=== PATIENT | male | born 1940 | race Caucasian/White ===

== ENCOUNTER → 2016-11-19 | Outpatient (POV) ==
[2013-10-11 19:11] VITALS: BMI 30.7
== END ==
LOC: OUTPT 00:01
PROVIDERS: ATTEND Otolaryngology
DX: R42 Dizziness and giddiness (principal)
CPT/HCPCS: 92557; 92567

== ENCOUNTER 2017-04-08 11:08 | Outpatient (CLI) | payer OTHER ==
[2013-10-11 19:11] VITALS: BMI 30.7
--- NOTE | 2017-04-08 12:08 | CT ---
EXAM: CT Abdomen without contrast. CT Pelvis without contrast. HISTORY: Dysuria. Flank pain. Pelvic pain. COMPARISON: None available. TECHNIQUE: Multiple axial images of the abdomen and pelvis were obtained without intravenous contras t. Images were reformatted in the coronal plane. FINDINGS: Please note that evaluation of the abdominal and pelvic structures is limited due to lack of intravenous contrast. Mild subpleural fibrosis suggested in the lung bases. Posterior lumbar interbody fusion and laminect lauren changes seen from L3-S1. Degenerative changes noted within the spine. Gallbladder is absent. The liver, pancreas, spleen, and adrenal glands demonstrate normal contour. Partially exophytic masses are seen in both kidneys, some measuring fluid density and many measuring greater than fluid density. Largest right-sided mass measures 7.5 x 6.9 cm on axial image 46. The l argest left-sided mass measures 5.6 x 4.9 cm on axial image 71. No calcified renal stones or hydrone phrosis detected. Mild perinephric stranding noted bilaterally. No ureteral or bladder calculi are se en. Small hiatal hernia is present. The bowel is normal in course and caliber without evidence for obstr uction or inflammatory process. The appendix is normal. No localized urinary bladder abnormality is detected. Prostate is mildly enlarged. Atherosclerotic calcifications noted with the infrarenal ab dominal aorta measuring up to 3.4 cm maximum diameter. No free fluid or free air identified. Inferi or vena cava filter is present. IMPRESSION: 1. No acute abnormality within the abdomen or pelvis. 2. Mild bilateral perinephric stranding, which is nonspecific and often a chronic finding. 3. Indeterminate renal lesions bilaterally. In the absence of old studies documenting stability, co nsider correlation with MRI. 4. Small hiatal hernia. 5. Atherosclerosis with 3.4 cm infrarenal abdominal aortic aneurysm.
== END 2017-04-08 11:09 | disposition home or self-care (01) ==
LOC: RAD 11:08
PROVIDERS: ATTEND Family Medicine
DX: R30.0 Dysuria (principal); R10.9 Unspecified abdominal pain
CPT/HCPCS: 74176

== ENCOUNTER 2017-12-01 09:52 | Outpatient (RCR) ==
[2013-10-11 19:11] VITALS: BMI 30.7
--- NOTE | 2017-12-02 11:45 | RS.OPPTEV2 ---
Date of Note: 12/01/17 Visit #: 1 Date of Evaluation: 12/01/17 Payer Source: MEDICARE Surgery Performed?: Yes (Reverse Total Shld R UE) Procedure Performed: Reverse Total Shld R UE Date of Procedure: 10/28/17 Treatment Diagnosis: R shld pain, s/p reverse total shld History of Condition/Mechanism of Injury:: pt reports longstanding hx of shld pain due to arthritis. pt reports MD states he also needs surgery on L shld Prior Level of Function.....Patient was independent with: ADL's, Self Care, Ambulation/Mobility, Community Integration/Access Functional Limitations: Sleep, Self Care, ADL's, Reaching, Pushing, Pulling, Lifting, Carrying Current Subjective/complaints:: pt reports he has been unable to tolerate pain meds due to nausea. Reports pain is keeping him awake at night. pt states that he uses ice and TENS unit at home to help decrease pain. Treatment Side (optional): Right *Precautions: limit ext, ER Medical History Medical History: Hypertension, Diabetes, Arthritis Medical History Comments:: GERD, polycystic kidney dz, sleep apnea Surgical History: Lumbar Spine, Cholecystectomy Surgical History Comments:: hernia repair, AAA repair Smoking Status: Former smoker Hx Home Medications: protonix, lyrica, metformin, methotrexate, lipitor, bystolic, lisinopril, amlodipine besylate, prednisone, furosemide, folic acid, clopidogrel bisulfate, multivitamin, niacin, aspirin, oxycodone Patient's Goals: decrease pain and increase strength Pain Assessment - Pain Description Pain Location: R shld Pain Description: Tightness, Sharp, Aching, Acute Current Pain Intensity: 6-7/10 Worst Pain Intensity: 10 Other Comments regarding Pain:: pt also with pain in L shld 4/10 Functional Outcome Measure UE Functional Index: 14 (82%) - G Codes & Severity Modifier G Codes & Modifier: carrying, moving and handling current CM. carrying, moving and handling goal CK Source of G Code score: UE functional index Observation - Observation Inspection: incision healed, no open areas Posture: Forward Head, Rounded Shoulders, Increased Thoracic Kyphosis, Decreased Lumbar Lordosis Handedness: Right Gait - Gait Pattern General Gait Pattern Observation: No Deviations/Normal General Range of Motion: LUE WFL's. BLE WFL's Muscle Strength: LUE shld flex/ abd 4/5, otherwise 5/5. BLE 5/5 Shoulder ROM: Left WFL's - Right Shoulder ROM Right Shoulder Flexion: 70 (AAROM, 30 AROM) Right Shoulder Abduction: 80 (AAROM, 40 AROM) Comments: Ext rotation to neutral only, Internal rotation 30 - Left Shoulder Strength Left Shoulder Flexion: 4 Good Left Shoulder Abduction: 4 Good Left Shoulder Adduction: 4 Good Left Shoulder External Rotation: 4- Good- Left Shoulder Internal Rotation: 4- Good- - Right Shoulder Strength Right Shoulder Flexion: 3- Fair- Right Shoulder Extension: 2+ Poor+ Right Shoulder Abduction: 3- Fair- Right Shoulder Adduction: 3- Fair- Right Shoulder External Rotation: 2 Poor Right Shoulder Internal Rotation: 2+ Poor+ Palpation Palpation Findings: Tenderness Comments:: R shld Sensation - Sensation Right Upper Extremity: Impaired (R UE numbness and burning from mid forearm to wrist) Left Upper Extremity: Intact/Normal Right Lower Extremity: Intact/Normal Left Lower Extremity: Intact/Normal Balance - Sitting Balance Static Sitting Balance: Normal Dynamic Sitting Balance: Normal - Standing Balance Static Standing Balance: Normal Dynamic Standing Balance: Normal - Heat/Cryotherapy Treatment: Cryotherapy Comments:: R shld Interventions - Exercise/Activities/Manual Therapy Exercises/Activities: pt received gentle ROM R shld, performed pendulum ex's with instruction on proper technique, pt also performed isometric R shld add, abd, attempted flex however experienced increased pain. Manual Therapy: n/a HOME EXERCISE PROGRAM: pt received HEP including isometric shld flex, abd, add as well as pendulum ex. - Charges Timed Code Treatment Minutes: 49 Total Treatment Time: 61 Procedures billed for this date of service:: eval med, cold pack EVALUATION COMPLEXITY LEVEL EVALUATION COMPLEXITY LEVEL: HISTORY: Medium (DM, HTN, OA, kidney disease), EXAM OF BODY SYSTEMS: Medium (ROM, strength, pain, posture, ), CLINICAL PRESENTATION: Medium (evolving), CLINICAL DECISION MAKING: Medium Assessment Assessment: pt presents s/p R reverse total shld replacment with decreased ROM, strength as well as pain in R shld. pt is unable to tolerate pain meds due to nausea. Patient Education: Education of diagnosis, Home Exercise Program, Education of Plan of Care Rehab Potential: Good Short Term Goals Goal #1: report decreased interruptions of sleep due to pain, able to sleep 2-3 hrs Goal to be met by: 12/15/17 Goal #2: Increase R shld AAROM flex 95 abd 90 Goal to be met by: 12/15/17 Goal #3: pt independent with intial HEP Goal to be met by: 12/15/17 Alf Goals Goal #1: report decreased pain allowing increased ability to perform household chore Goal to be met by: 12/29/17 Goal #2: pt report ability to perform ADL's independently with less pain Goal to be met by: 12/29/17 Goal #3: Increase R shld ROM flex 120 abd 110, IR WFL's Goal to be met by: 12/29/17 Goal #4: pt independent with HEP to maintain gains after dc Goal to be met by: 12/29/17 Plan - Treatment to be Provided Procedures: Therapeutic Exercises, Therapeutic Activity, Manual Therapy, Patient Education Modalities: Electrical Stimulation, Class IV Laser, Cryotherapy, Hot Packs - Treatment Plan Frequency: 2-3 x per week Duration: 4 weeks ORDER # VISITS AND/OR THROUGH DATE: 12/29/17 - Treatment Code (1) Pain in joint, shoulder region Code(s): M25.519 - PAIN IN UNSPECIFIED SHOULDER (2) Aftercare following shoulder joint replacement surgery Code(s): Z47.1 - AFTERCARE FOLLOWING JOINT REPLACEMENT SURGERY; Z96.619 - PRESENCE OF UNSPECIFIED ARTIFICIAL SHOULDER JOINT (3) Muscle weakness Code(s): M62.81 - MUSCLE WEAKNESS (GENERALIZED)
== END 2017-12-03 23:59 ==
PROVIDERS: ATTEND Orthopaedic Surgery
DX: Z47.1 Aftercare following joint replacement surgery (principal); Z96.611 Presence of right artificial shoulder joint; M25.511 Pain in right shoulder; M62.81 Muscle weakness (generalized)

== ENCOUNTER 2017-12-31 11:00 | Outpatient (RCR) ==
[2014-10-18 13:24] VITALS: BMI 30.7
--- NOTE | 2017-12-04 16:01 | RS.OPPTDN ---
Subjective Date of Note: 12/04/17 Visit #: 2 Date of Evaluation: 12/01/17 Payer Source: MEDICARE Treatment Diagnosis: R shld pain, s/p reverse total shld Current Subjective/complaints:: Patient reports he is working on HEP. *Precautions: limit ext, ER Pain Assessment - Pain Description Pain Location: Right shoulder and upper arm Current Pain Intensity: mild Interventions - Exercise/Activities/Manual Therapy Exercises/Activities: Majority of time spent on gentle ROM R shoulder. Isometrics right shoulder add, ext, abd, biceps, triceps. Patient hold ball for isometric bilateral shoulder IR. Wand for chest press. In sitting, shoulder shrugs and scap retraction. Codmans. Paitent given copies of new exercises. Total minutes of Exercise: 40mins Manual Therapy: n/a HOME EXERCISE PROGRAM: pt received HEP including isometric shld flex, abd, add as well as pendulum ex. Wand for chest press in supine. Shoulder shrugs and scap retraction. - Charges Timed Code Treatment Minutes: 40mins Total Treatment Time: 43mins Procedures billed for this date of service:: EX3 Assessment: Patient tolerates progression of basic exercise. Patient appears motivated to progress. Patient Education: Education of diagnosis, Body/Joint mechanics, Home Exercise Program, Home Safety Comments: Patient education of joint mechanics and general safety precautions. 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
--- NOTE | 2017-12-07 12:59 | RS.OPPTDN ---
Subjective Date of Note: 12/07/17 Visit #: 3 Date of Evaluation: 12/01/17 Payer Source: MEDICARE Treatment Diagnosis: R shld pain, s/p reverse total shld Current Subjective/complaints:: Patient reports some soreness at the lateral upper right arm. States he feels like he is doing well with HEP. *Precautions: limit ext, ER Pain Assessment - Pain Description Pain Location: Right shoulder and upper arm Current Pain Intensity: mild Interventions - Exercise/Activities/Manual Therapy Exercises/Activities: Continue to focus on gentle ROM fo the right shoulder. Isometrics right shoulder add, ext, abd, biceps, triceps. Patient hold ball for isometric bilateral shoulder IR. Holds ball overhead with shoulder at 90 degrees flexion and performs isometric horz add. Wand for chest press and short range flexion. In sitting, shoulder shrugs and scap retraction. Codmans. Began overhead shoulder pulleys. Ends with red theraband for bilateral shoulder extension (to neutral) while performing scap retraction. Total minutes of Exercise: 44mins Manual Therapy: n/a HOME EXERCISE PROGRAM: pt received HEP including isometric shld flex, abd, add as well as pendulum ex. Wand for chest press in supine. Shoulder shrugs and scap retraction. - Charges Timed Code Treatment Minutes: 44mins Total Treatment Time: 45mins Procedures billed for this date of service:: EX3 Assessment: Patient progressing with ROM and gentle AAROM. Patient Education: Body/Joint mechanics, Home Exercise Program, Activity Modification Patient demonstrates compliance with HEP?: Yes Short Term Goals Goal #1: report decreased interruptions of sleep due to pain, able to sleep 2-3 hrs Goal to be met by: 12/15/17 Progress towards Goal:: Progressing Goal #2: Increase R shld AAROM flex 95 abd 90 Goal to be met by: 12/15/17 Progress towards Goal:: Progressing Goal #3: pt independent with intial HEP Goal to be met by: 12/15/17 Progress towards Goal:: Progressing Long-Term Goals Goal #1: report decreased pain allowing increased ability to perform household chore Goal to be met by: 12/29/17 Goal #2: pt report ability to perform ADL's independently with less pain Goal to be met by: 12/29/17 Goal #3: Increase R shld ROM flex 120 abd 110, IR WFL's Goal to be met by: 12/29/17 Goal #4: pt independent with HEP to maintain gains after dc Goal to be met by: 12/29/17 Plan PLAN OF CARE EXPIRES ON:: 12/29/17 ORDER # VISITS AND/OR THROUGH DATE: 12/29/17 PLAN: Continue to progress ROM and AAROM exercises.
--- NOTE | 2017-12-09 12:01 | RS.OPPTDN ---
Subjective Date of Note: 12/09/17 Visit #: 4 Date of Evaluation: 12/01/17 Payer Source: MEDICARE Treatment Diagnosis: R shld pain, s/p reverse total shld Current Subjective/complaints:: Patient says he thinks he may be worse due to pain level. Says his mobility is worse, but seems to be hurting more at times. Patient says that he has made a mirta system at home and works on them often to improve ROM. He does say he misses target shooting with the R UE as location of placement using madelyn will cause tenderness to this area. Reports he will probably use the L UE until R heals. *Precautions: limit ext, ER Pain Assessment - Pain Description Pain Location: R shoulder anteriorally and to the axillary region Interventions - Exercise/Activities/Manual Therapy Exercises/Activities: Continue to focus on gentle ROM fo the right shoulder. Isometrics right shoulder add, ext, abd, biceps, triceps 2x5. Patient hold ball for isometric bilateral shoulder IR. Holds ball overhead with shoulder at 90 degrees flexion and performs isometric horz add. Wand for chest press and short range flexion. In sitting, shoulder shrugs and scap retraction. Finished with overhead shoulder pulleys. Ends with red theraband for bilateral shoulder extension (to neutral) while performing scap retraction. Total minutes of Exercise: 45 Manual Therapy: n/a HOME EXERCISE PROGRAM: pt received HEP including isometric shld flex, abd, add as well as pendulum ex. Wand for chest press in supine. Shoulder shrugs and scap retraction. - Charges Timed Code Treatment Minutes: 45 Total Treatment Time: 45 Procedures billed for this date of service:: ex3 Assessment: Patient demo AA shoulder flexion to 125 degrees using wand in supine , ABD to 115 degrees in supine. Pain remains mostly with eccentric contractions and continues to be moderate level. He is motivated to advance as he anticipates same procedure for the L shoulder once R has recovered. Patient Education: Education of diagnosis, Body/Joint mechanics, Education of Plan of Care Patient demonstrates compliance with HEP?: Yes Short Term Goals Goal #1: report decreased interruptions of sleep due to pain, able to sleep 2-3 hrs Goal to be met by: 12/15/17 Progress towards Goal:: Progressing Goal #2: Increase R shld AAROM flex 95 abd 90 Goal to be met by: 12/15/17 Progress towards Goal:: Progressing Goal #3: pt independent with intial HEP Goal to be met by: 12/15/17 Progress towards Goal:: Progressing Correction Goals Goal #1: report decreased pain allowing increased ability to perform household chore Goal to be met by: 12/29/17 Goal #2: pt report ability to perform ADL's independently with less pain Goal to be met by: 12/29/17 Goal #3: Increase R shld ROM flex 120 abd 110, IR WFL's Goal to be met by: 12/29/17 Goal #4: pt independent with HEP to maintain gains after dc Goal to be met by: 12/29/17 Plan PLAN OF CARE EXPIRES ON:: 12/29/17 ORDER # VISITS AND/OR THROUGH DATE: 12/29/17 PLAN: Continue with progressive therex for the R shoulder
--- NOTE | 2017-12-11 12:03 | RS.OPPTDN ---
Subjective Date of Note: 12/11/17 Visit #: 5 Date of Evaluation: 12/01/17 Payer Source: MEDICARE Treatment Diagnosis: R shld pain, s/p reverse total shld Current Subjective/complaints:: Patient reports he feels he is progressing well. He is doing more light activities but is careful with shoulder precautions. *Precautions: limit ext, ER Pain Assessment - Pain Description Pain Location: Right shoulder and upper arm Pain Description: Aching Current Pain Intensity: mild with some movements Interventions - Exercise/Activities/Manual Therapy Exercises/Activities: Gentle ROM fo the right shoulder. Isometrics right shoulder add, ext, abd, biceps, triceps [id number]. Patient hold ball for isometric bilateral shoulder IR. Wand for chest press and flexion from lap to overhead. Isometrics all 4 directions while holding right shoulder at 90 degrees flexion. Began short resistive flex, ext, horz add, and abd with red theragand. In sitting, shoulder shrugs and scap retraction. AA flexion, scap, and abd. Red theraband for right shoulder x4 directions in standing. Ball on the wall. Total minutes of Exercise: 44mins Manual Therapy: n/a HOME EXERCISE PROGRAM: pt received HEP including isometric shld flex, abd, add as well as pendulum ex. Wand for chest press in supine. Shoulder shrugs and scap retraction. - Objective Findings Observations,measurements,etc.: Demos right active shoulder flexion to 115 degrees. - Charges Timed Code Treatment Minutes: 44mins Total Treatment Time: 47mins Procedures billed for this date of service:: EX3 Assessment: Patient progressing well with exercise and with light functional ADL 's. Patient Education: Body/Joint mechanics, Home Exercise Program, Home Safety, Activity Modification Patient demonstrates compliance with HEP?: Yes Short Term Goals Goal #1: report decreased interruptions of sleep due to pain, able to sleep 2-3 hrs Goal to be met by: 12/15/17 Progress towards Goal:: Progressing Goal #2: Increase R shld AAROM flex 95 abd 90 Goal to be met by: 12/15/17 Progress towards Goal:: Partially Met Goal #3: pt independent with intial HEP Goal to be met by: 12/15/17 Progress towards Goal:: Partially [place] Hand Goals Goal #1: report decreased pain allowing increased ability to perform household chore Goal to be met by: 12/29/17 Progress towards goal: Progressing Goal #2: pt report ability to perform ADL's independently with less pain Goal to be met by: 12/29/17 Progress towards goal: Progressing Goal #3: Increase R shld ROM flex 120 abd 110, IR WFL's Goal to be met by: 12/29/17 Goal #4: pt independent with HEP to maintain gains after dc Goal to be met by: 12/29/17 Plan PLAN OF CARE EXPIRES ON:: 12/29/17 ORDER # VISITS AND/OR THROUGH DATE: 12/29/17 PLAN: Progress strengthening and AROM.
--- NOTE | 2017-12-14 15:07 | RS.OPPTDN ---
Subjective Date of Note: 12/14/17 Visit #: 6 Date of Evaluation: 12/01/17 Payer Source: MEDICARE Treatment Diagnosis: R shld pain, s/p reverse total shld Current Subjective/complaints:: Patient reports he has increased soreness in the right upper lateral arm but that may be due to increasing his activity level. *Precautions: limit ext, ER Pain Assessment - Pain Description Pain Location: right shoulder and upper arm Pain Description: Dull, Aching Current Pain Intensity: mild Interventions - Exercise/Activities/Manual Therapy Exercises/Activities: Gentle ROM fo the right shoulder. Isometrics right shoulder add, ext, abd, biceps, triceps [id number]. Patient hold ball for isometric bilateral shoulder IR. Isometric horz add with ball. Overhead ball toss for proprioception. Increased to 3# wand for chest press and flexion from lap to overhead. Short resistive flex, ext, horz add, and abd with yellow theraband. In sitting, shoulder shrugs and scap retraction. AA flexion, scap, and abd. Red theraband for right shoulder x4 directions in standing Began cuff series with 2# dumbell. Ball on the wall. Total minutes of Exercise: 44mins Manual Therapy: n/a HOME EXERCISE PROGRAM: pt received HEP including isometric shld flex, abd, add as well as pendulum ex. Wand for chest press in supine. Shoulder shrugs and scap retraction. - Objective Findings Observations,measurements,etc.: Active right shoulder flexion 123 degrees and abduction to 81 degrees. - Charges Timed Code Treatment Minutes: 44mins Total Treatment Time: 46mins Procedures billed for this date of service:: EX3 Assessment: Progressing with AROM and gentle strengthening. 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 Goal #1: report decreased pain allowing increased ability to perform household chore Goal to be met by: 12/29/17 Progress towards goal: Progressing Goal #2: pt report ability to perform ADL's independently with less pain Goal to be met by: 12/29/17 Progress towards goal: Progressing Goal #3: Increase R shld ROM flex 120 abd 110, IR WFL's Goal to be met by: 12/29/17 Goal #4: pt independent with HEP to maintain gains after dc Goal to be met by: 12/29/17 Plan PLAN OF CARE EXPIRES ON:: 12/29/17 ORDER # VISITS AND/OR THROUGH DATE: 12/29/17 PLAN: Progress with ROM and strengthening to increase functional activity level.
--- NOTE | 2017-12-16 11:59 | RS.OPPTDN ---
Subjective Date of Note: 12/16/17 Visit #: 7 Date of Evaluation: 12/01/17 Payer Source: MEDICARE Treatment Diagnosis: R shld pain, s/p reverse total shld Current Subjective/complaints:: Patient reports he is making progress but still having discomfort at the lateral upper right arm. *Precautions: limit ext, ER Pain Assessment - Pain Description Pain Location: Right shoulder and upper arm Pain Description: Dull, Aching Current Pain Intensity: mild Other Comments regarding Pain:: Reports mild discomfort with some active reaching and when rollong onto arm when in bed. Interventions - Exercise/Activities/Manual Therapy Exercises/Activities: ROM fo the right shoulder. Isometrics right shoulder add, ext, abd, biceps, triceps. Patient hold ball for isometric bilateral shoulder IR. Isometric horz add with ball. Overhead ball toss for proprioception. Increased to 5# wand for chest press and overhead flexion. Short resistive flex , ext, horz add, and abd increased to red theraband. Began resistive flexion and scaption with 1# dumbell. In sitting, shoulder shrugs and scap retraction. 3 # wand flexion to shoulder height. Standing, red theraband for right shoulder x4 directions, increased to 2s/10reps, Cuff series increased to 3# dumbell. Ball on the wall and bouncing ball off wall. Chest passisng. Total minutes of Exercise: 43mins Manual Therapy: n/a HOME EXERCISE PROGRAM: pt received HEP including isometric shld flex, abd, add as well as pendulum ex. Wand for chest press in supine. Shoulder shrugs and scap retraction. - Charges Timed Code Treatment Minutes: 43mins Total Treatment Time: 46mins Procedures billed for this date of service:: EX3 Assessment: Patient progressing with strengthening exercise and with functional use of the right UE with ADL's. Patient Education: Body/Joint mechanics, Home Exercise Program, Activity Modification Patient demonstrates compliance with HEP?: Yes Short Term Goals Goal #1: report decreased interruptions of sleep due to pain, able to sleep 2-3 hrs Goal to be met by: 12/15/17 Progress towards Goal:: Met Goal #2: Increase R shld AAROM flex 95 abd 90 Goal to be met by: 12/15/17 Progress towards Goal:: Partially Met Goal #3: pt independent with intial HEP Goal to be met by: 12/15/17 Progress towards Goal:: Met Group Home Goals Goal #1: report decreased pain allowing increased ability to perform household chore Goal to be met by: 12/29/17 Progress towards goal: Progressing Goal #2: pt report ability to perform ADL's independently with less pain Goal to be met by: 12/29/17 Progress towards goal: Progressing Goal #3: Increase R shld ROM flex 120 abd 110, IR WFL's Goal to be met by: 12/29/17 Goal #4: pt independent with HEP to maintain gains after dc Goal to be met by: 12/29/17 Plan PLAN OF CARE EXPIRES ON:: 12/29/17 ORDER # VISITS AND/OR THROUGH DATE: 12/29/17 PLAN: Continue progressing ROM and strengthening of the right UE to increase patients functional activity level.
--- NOTE | 2017-12-18 12:11 | RS.OPPTDN ---
Subjective Date of Note: 12/18/17 Visit #: 8 Date of Evaluation: 12/01/17 Payer Source: MEDICARE Treatment Diagnosis: R shld pain, s/p reverse total shld Current Subjective/complaints:: Patient reports mild soreness continues at the upper lateral right arm with inncreased use of the right arm. States his active reaching is improving. *Precautions: limit ext, ER Pain Assessment - Pain Description Pain Location: Right shoulder and upper arm Pain Description: Dull, Aching Current Pain Intensity: mild with activity Interventions - Exercise/Activities/Manual Therapy Exercises/Activities: ROM fo the right shoulder. Isometrics right shoulder add, ext, abd, biceps, triceps. Overhead ball toss for proprioception. Increased to 6 # wand for chest press and overhead flexion. Short resistive flex, ext, horz add , and abd increased to red theraband. Resistive flexion and scaption with 1# dumbell. 3# dumbell for sesrratus punch. 6# wand for chest press and overhead flexion. In sitting, shoulder shrugs and scap retraction. 3# wand flexion to shoulder height. Standing, red theraband for right shoulder x4 directions, increased to 2s/10reps, Chest passing. Cable pulleys for scap retraction with 20 #, 20reps. Ball on the wall and bouncing ball off wall. Active flexion leaning against wall for support. Total minutes of Exercise: 43mins Manual Therapy: n/a HOME EXERCISE PROGRAM: pt received HEP including isometric shld flex, abd, add as well as pendulum ex. Wand for chest press in supine. Shoulder shrugs and scap retraction. - Objective Findings Observations,measurements,etc.: Active right shoulder flexion 133 degrees today. - Charges Timed Code Treatment Minutes: 43mins Total Treatment Time: 46mins Procedures billed for this date of service:: EX3 Assessment: Patient progressing with AROM of the right shoulder and reporting increase in functional use of the right UE. Patient Education: Body/Joint mechanics, Home Exercise Program, Home Safety, Activity Modification Patient demonstrates compliance with HEP?: Yes Short Term Goals Goal #1: report decreased interruptions of sleep due to pain, able to sleep 2-3 hrs Goal to be met by: 12/15/17 Progress towards Goal:: Met Goal #2: Increase R shld AAROM flex 95 abd 90 Goal to be met by: 12/15/17 Progress towards Goal:: Partially Met Goal #3: pt independent with intial HEP Goal to be met by: 12/15/17 Progress towards Goal:: Met Halfway Goals Goal #1: report decreased pain allowing increased ability to perform household chore Goal to be met by: 12/29/17 Progress towards goal: Partially Met Goal #2: pt report ability to perform ADL's independently with less pain Goal to be met by: 12/29/17 Progress towards goal: Progressing Goal #3: Increase R shld ROM flex 120 abd 110, IR WFL's Goal to be met by: 12/29/17 Progress towards goal: Progressing Goal #4: pt independent with HEP to maintain gains after dc Goal to be met by: 12/29/17 Plan PLAN OF CARE EXPIRES ON:: 12/29/17 ORDER # VISITS AND/OR THROUGH DATE: 12/29/17 PLAN: Progress ROM and strengthening to increase patients functional activity level.
--- NOTE | 2017-12-21 16:21 | RS.OPPTDN ---
Subjective Date of Note: 12/21/17 Visit #: 9 Date of Evaluation: 12/01/17 Payer Source: MEDICARE Treatment Diagnosis: R shld pain, s/p reverse total shld Current Subjective/complaints:: Reports increasing light daily activities, but continues to have pain in the upper right arm that limits his sleep at night. *Precautions: limit ext, ER Pain Assessment - Pain Description Pain Location: right upper arm Pain Description: Aching Current Pain Intensity: mod at night Interventions - Exercise/Activities/Manual Therapy Exercises/Activities: ROM of the right shoulder. Isometrics right shoulder add, ext, abd, biceps, triceps. Overhead ball toss for proprioception. 7# wand for chest press and short overhead flexion. Short resistive flex, ext, horz add, and abd increased to red theraband. Resistive flexion and scaption with 1# dumbell. In sitting, scap retraction green theraband. 3# wand flexion to shoulder height. Standing, red theraband for right shoulder x4 directions, 2s/ 10reps, Chest passing, and began overhead pass. Overhead shoulder pulleys. Ball on the wall. Cuff series with 3# dumbell. Total minutes of Exercise: 41mins Manual Therapy: n/a HOME EXERCISE PROGRAM: pt received HEP including isometric shld flex, abd, add as well as pendulum ex. Wand for chest press in supine. Shoulder shrugs and scap retraction. - Charges Timed Code Treatment Minutes: 41mins Total Treatment Time: 43mins Procedures billed for this date of service:: EX3 Assessment: Patient progressing but having limitation due to discomfort upper right arm. 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 Goal #1: report decreased pain allowing increased ability to perform household chore Goal to be met by: 12/29/17 Progress towards goal: Partially Met Goal #2: pt report ability to perform ADL's independently with less pain Goal to be met by: 12/29/17 Progress towards goal: Progressing Goal #3: Increase R shld ROM flex 120 abd 110, IR WFL's Goal to be met by: 12/29/17 Progress towards goal: Progressing Goal #4: pt independent with HEP to maintain gains after dc Goal to be met by: 12/29/17 Plan PLAN OF CARE EXPIRES ON:: 12/29/17 ORDER # VISITS AND/OR THROUGH DATE: 12/29/17 PLAN: Progress with ROM and strengthening to increase functional use of the right UE.
--- NOTE | 2017-12-23 16:04 | RS.OPPTDN ---
Subjective Date of Note: 12/23/17 Visit #: 10 Date of Evaluation: 12/01/17 Payer Source: MEDICARE Treatment Diagnosis: R shld pain, s/p reverse total shld Current Subjective/complaints:: Patient reports he is progressing with some daily activities. Feels he will gain more use of the right UE with continued strengthening exercise. States he is concerned with discomfort right upper arm, which is worse at night when trying to rest. *Precautions: limit ext, ER Pain Assessment - Pain Description Pain Location: Right shoulder and upper arm Pain Description: Aching Current Pain Intensity: mild Interventions - Exercise/Activities/Manual Therapy Exercises/Activities: ROM of the right shoulder. Isometrics right shoulder add, ext, abd, biceps, triceps. Overhead ball toss and manual ocsillating resistance for proprioception. 7# wand for chest press and short overhead flexion. Short resistive flex, ext, horz add, and abd increased to red theraband. Resistive flexion and scaption with 1# dumbell. In sitting, scap retraction green theraband. 3# wand flexion to shoulder height. Standing, red theraband for right shoulder x4 directions, 2s/10reps, Chest passing, and began overhead pass. Cuff series with 3# dumbell. Active reaching with right UE. Total minutes of Exercise: 44mins Manual Therapy: n/a HOME EXERCISE PROGRAM: pt received HEP including isometric shld flex, abd, add as well as pendulum ex. Wand for chest press in supine. Shoulder shrugs and scap retraction. - Objective Findings Observations,measurements,etc.: Acitve right shoulder flexion to 146 degrees today. Patient increases Upper Extremity Functional Index score to 48/80 or 40%. - Charges Timed Code Treatment Minutes: 44mins Total Treatment Time: 47mins Procedures billed for this date of service:: EX3 Assessment: Patient has progressed well and demos good potential for progress with functional use of the right UE with daily activities. 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 Goal #1: report decreased pain allowing increased ability to perform household chore Goal to be met by: 12/29/17 Progress towards goal: Partially Met Goal #2: pt report ability to perform ADL's independently with less pain Goal to be met by: 12/29/17 Progress towards goal: Progressing Goal #3: Increase R shld ROM flex 120 abd 110, IR WFL's Goal to be met by: 12/29/17 Progress towards goal: Partially Met Goal #4: pt independent with HEP to maintain gains after dc Goal to be met by: 12/29/17 Progress towards goal: Partially Met Plan PLAN OF CARE EXPIRES ON:: 12/29/17 ORDER # VISITS AND/OR THROUGH DATE: 12/29/17 PLAN: Continue with current POC to increase patients functional use of the right UE.
--- NOTE | 2017-12-25 11:36 | RS.PTSUM ---
Progress Note/Summary Date of Note: 12/23/17 Date of Evaluation: 12/01/17 Number of Visits: 10 Reporting Period for this Progress Note: 12/01-12/23/17 Current Complaints/Gains: pt reports he is pleased with his progress. pt feels he can gain more use of RUE with ADL's. pt can perform light ADL's at this time. Objective Measurements/Presentation: pt AROM R shld flex 146. Strength R shld 3 to 3+/5 R shld flex. pt UE functional scale has improved from 14/80 on eval to 48/80. G Codes: carrying moving and handling current CK. carrying moving and handling goal CK Source of G Code Score: UE functional scale - Short Term Goals Goal #1: report decreased interruptions of sleep due to pain, able to sleep 2-3 hrs Goal to be met by: 12/15/17 Progress towards Goal:: Met Goal #2: Increase R shld AAROM flex 95 abd 90 Goal to be met by: 12/15/17 Progress towards Goal:: Met Goal #3: pt independent with intial HEP Goal to be met by: 12/15/17 Progress towards Goal:: Met - Snf Goals Goal #1: report decreased pain allowing increased ability to perform household chore Goal to be met by: 12/29/17 Progress towards goal: Partially Met Goal #2: pt report ability to perform ADL's independently with less pain Goal to be met by: 12/29/17 Progress towards goal: Progressing Goal #3: Increase R shld ROM flex 120 abd 110, IR WFL's Goal to be met by: 12/29/17 Progress towards goal: Partially Met Goal #4: pt independent with HEP to maintain gains after dc Goal to be met by: 12/29/17 Progress towards goal: Partially Met - Assessment Assessment of Improvement/Progress: pt has met all STG's and is progressing toward remaining goals. pt has made significant progress with ROM, pain and functional use of R UE. Feel pt would benefit from 2 more visits to increase ROM and increase independence with home activities. Summary: Patient has made progress towards goals., Patient demonstrates potential to gain increased function with therapy - Plan Plan: Complete remaining visits on current order. Frequency: 2 X week Duration: 1 week PLAN OF CARE EXPIRES ON:: 06/26/18 ORDER # VISITS AND/OR THROUGH DATE: 12/29/17
--- NOTE | 2017-12-25 15:25 | RS.OPPTDN ---
Subjective Date of Note: 12/25/17 Visit #: 11 Date of Evaluation: 12/01/17 Payer Source: MEDICARE Treatment Diagnosis: R shld pain, s/p reverse total shld Current Subjective/complaints:: Patient reports he is seeing his physician today for a follow-up. He is pleased with his progress but continues to have pain in the right upper arm. He reports he is doing more light daily activities around his home. *Precautions: limit ext, ER Pain Assessment - Pain Description Pain Location: Right shoulder and upper arm Pain Description: Aching Current Pain Intensity: mild Interventions - Exercise/Activities/Manual Therapy Exercises/Activities: ROM of the right shoulder. Isometrics right shoulder add, ext, abd, biceps, triceps. Overhead ball toss and manual proprioception. 7# wand for chest press and short overhead flexion. Short resistive flex, ext, horz add, and abd increased to red and green theraband. Resistive pulldowns with wand and green theraband. In sitting, scap retraction green theraband. 3# wand flexion to shoulder height. Standing, red theraband for right shoulder x4 directions, 2s/10reps, Chest passing and overhead pass. Cuff series with 3# dumbell. Active reaching with right UE. Ball on the wall. Total minutes of Exercise: 44mins Manual Therapy: n/a HOME EXERCISE PROGRAM: pt received HEP including isometric shld flex, abd, add as well as pendulum ex. Wand for chest press in supine. Shoulder shrugs and scap retraction. - Objective Findings Observations,measurements,etc.: Active right shoulder flexion 153 degrees and abduction 134 degrees. - Charges Timed Code Treatment Minutes: 44mins Total Treatment Time: 47mins Procedures billed for this date of service:: EX3 Assessment: Patient progressing well with AROM and strengthening exercises. 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 Goal #1: report decreased pain allowing increased ability to perform household chore Goal to be met by: 12/29/17 Progress towards goal: Partially Met Goal #2: pt report ability to perform ADL's independently with less pain Goal to be met by: 12/29/17 Progress towards goal: Partially Met Goal #3: Increase R shld ROM flex 120 abd 110, IR WFL's Goal to be met by: 12/29/17 Progress towards goal: Met Goal #4: pt independent with HEP to maintain gains after dc Goal to be met by: 12/29/17 Progress towards goal: Partially Met Plan PLAN OF CARE EXPIRES ON:: 12/29/17 ORDER # VISITS AND/OR THROUGH DATE: 12/29/17 PLAN: Will see patient next week and may reassess need to continue if additional orders received from physician. Prepare for discharge with HEP if indicated.
--- NOTE | 2017-12-29 11:55 | RS.CSNOTE ---
PT Case Note Date of Note: 12/29/17 Note: Received order for continued PT x 4 weeks. Plan to continue PT 2x a week for 2-4 more weeks to focus on increased ROM, strength to improve function. Continue to progress toward remaining goals with goals to be met by 01/22/18.
--- NOTE | 2017-12-29 15:19 | RS.OPPTDN ---
Subjective Date of Note: 12/29/17 Visit #: 12 Date of Evaluation: 12/01/17 Payer Source: MEDICARE Treatment Diagnosis: R shld pain, s/p reverse total shld Current Subjective/complaints:: Patient reports physician was pleased with his progress and has written orders to continue. *Precautions: limit ext, ER Interventions - Exercise/Activities/Manual Therapy Exercises/Activities: ROM of the right shoulder. Isometrics right shoulder add, ext, abd, biceps, triceps. Proprioception with patient holding 2# ball overhead and performing cw and ccw circles. 7# wand for chest press and short overhead flexion. Short resistive flex, ext, horz add, and abd with green theraband. Bilateral shoulder horz abd and diagonals with green theraband. Resistive pulldowns with wand and blue theraband. In sitting, scap retraction blue theraband. 3# wand flexion to shoulder height. Chest passing and overhead pass. Active reaching with right UE. Shelf reaching with 2# weight, multiple reps. Total minutes of Exercise: 49mins Manual Therapy: n/a HOME EXERCISE PROGRAM: pt received HEP including isometric shld flex, abd, add as well as pendulum ex. Wand for chest press in supine. Shoulder shrugs and scap retraction. - Charges Timed Code Treatment Minutes: 49mins Total Treatment Time: 52mins Procedures billed for this date of service:: EX3 Assessment: Patient demos potential to progress with functional use of the right UE and meet treatment goals. 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 Goal #1: report decreased pain allowing increased ability to perform household chore Goal to be met by: 01/22/18 Progress towards goal: Partially Met Goal #2: pt report ability to perform ADL's independently with less pain Goal to be met by: 01/22/18 Progress towards goal: Partially Met Goal #3: Increase R shld ROM flex 120 abd 110, IR WFL's Goal to be met by: 01/22/18 Progress towards goal: Met Goal #4: pt independent with HEP to maintain gains after dc Goal to be met by: 01/22/18 Progress towards goal: Partially Met Plan PLAN OF CARE EXPIRES ON:: 01/22/18 ORDER # VISITS AND/OR THROUGH DATE: 01/22/18 PLAN: Progress with strengthening and AROM of the right UE.
--- NOTE | 2017-12-31 16:03 | RS.OPPTDN ---
Subjective Date of Note: 12/31/17 Visit #: 13 Date of Evaluation: 12/01/17 Payer Source: MEDICARE Treatment Diagnosis: R shld pain, s/p reverse total shld Current Subjective/complaints:: Patient reports soreness mainly in right upper lateral arm. *Precautions: limit ext, ER Pain Assessment - Pain Description Pain Location: Right shoulder and upper arm Pain Description: Aching Current Pain Intensity: mild Other Comments regarding Pain:: Increases at night and disrupts sleep. Interventions - Exercise/Activities/Manual Therapy Exercises/Activities: Began with UBE x3mins. ROM of the right shoulder. Isometrics right shoulder add, ext, abd, biceps, triceps. Proprioception with patient holding 2# ball overhead and circles. Increased to 8# wand for chest press and short overhead flexion. Short resistive flex, ext, horz add, and abd with green and red therabands. Bilateral shoulder horz abd and diagonals with green theraband. Resistive pulldowns with wand and green theraband. In sitting , scap retraction blue theraband. In sitting, 3# wand flexion to shoulder height. Chest passing and overhead pass. Red theraband for shoulder flex, ext, add, and abd, 2s/10reps. Total minutes of Exercise: 42mins/45mins Manual Therapy: n/a HOME EXERCISE PROGRAM: pt received HEP including isometric shld flex, abd, add as well as pendulum ex. Wand for chest press in supine. Shoulder shrugs and scap retraction. - Objective Findings Observations,measurements,etc.: Active right shoulder flexion to 153 degrees. - Charges Timed Code Treatment Minutes: 42mins Total Treatment Time: 47mins Procedures billed for this date of service:: EX3 Assessment: Patient progressing well with strengthening and with AROM of the right UE. Patient Education: Home Exercise Program Patient demonstrates compliance with HEP?: Yes Short Term Goals Goal #1: report decreased interruptions of sleep due to pain, able to sleep 2-3 hrs Goal to be met by: 12/15/17 Progress towards Goal:: Met Goal #2: Increase R shld AAROM flex 95 abd 90 Goal to be met by: 12/15/17 Progress towards Goal:: Met Goal #3: pt independent with intial HEP Goal to be met by: 12/15/17 Progress towards Goal:: Met Correction Goals Goal #1: report decreased pain allowing increased ability to perform household chore Goal to be met by: 01/22/18 Progress towards goal: Partially Met Goal #2: pt report ability to perform ADL's independently with less pain Goal to be met by: 01/22/18 Progress towards goal: Partially Met Goal #3: Increase R shld ROM flex 120 abd 110, IR WFL's Goal to be met by: 01/22/18 Progress towards goal: Met Goal #4: pt independent with HEP to maintain gains after dc Goal to be met by: 01/22/18 Progress towards goal: Partially Met Plan PLAN OF CARE EXPIRES ON:: 01/22/18 ORDER # VISITS AND/OR THROUGH DATE: 01/22/18 PLAN: Progress with strength and ROM to increase patients functional activity level.
== END 2018-01-02 23:59 ==
PROVIDERS: ATTEND Orthopaedic Surgery
DX: Z47.31 Aftercare following explantation of shoulder joint prosthesis (principal); M25.511 Pain in right shoulder

== ENCOUNTER 2018-01-15 11:00 | Outpatient (RCR) ==
[2014-10-18 13:24] VITALS: BMI 30.7
--- NOTE | 2018-01-05 12:02 | RS.OPPTDN ---
Subjective Date of Note: 01/05/18 Visit #: 14 Date of Evaluation: 12/01/17 Payer Source: MEDICARE Treatment Diagnosis: R shld pain, s/p reverse total shld Current Subjective/complaints:: Reports difficulty with reaching activities due to pain at lateral upper arm with approx 90 degrees flexion. Reports continued discomfort at night limiting sleep. *Precautions: limit ext, ER Pain Assessment - Pain Description Pain Location: Right upper arm Pain Description: Aching Current Pain Intensity: mild to mod Interventions - Exercise/Activities/Manual Therapy Exercises/Activities: PROM of the right shoulder. Isometrics right shoulder add , ext, abd, biceps, triceps. Proprioception with patient holding 2# ball overhead for cw and ccw circles. 8# wand for chest press and short overhead flexion. Short resistive flex, ext, horz add, and abd with green and red therabands. Bilateral shoulder horz abd and diagonals with green theraband. Resistive pulldowns with wand and green theraband. In sitting, scap retraction with 3# wand and theraband. Active right shoulder flexion and abduction with 1 1 /2# weight 3s/5reps each. Overhead flexion while holding ball, 1 1/2# cuff weight to right wrist. In sitting, 3# wand flexion to shoulder height. Chest passing and overhead pass. Red theraband for shoulder flex, ext, add, and abd, 2s/10reps. Shelf reaching to shoulder height with 2# ball, and just above shoulder height with light ball. Total minutes of Exercise: 42mins Manual Therapy: n/a HOME EXERCISE PROGRAM: pt received HEP including isometric shld flex, abd, add as well as pendulum ex. Wand for chest press in supine. Shoulder shrugs and scap retraction. - Charges Timed Code Treatment Minutes: 42mins Total Treatment Time: 44mins Procedures billed for this date of service:: EX3 Assessment: Patient needs continued work on strength with active reaching to increase his ability to perform functional activities at home. Patient Education: Home Exercise Program, Home Safety, Activity Modification Patient demonstrates compliance with HEP?: Yes Short Term Goals Goal #1: report decreased interruptions of sleep due to pain, able to sleep 2-3 hrs Goal to be met by: 12/15/17 Progress towards Goal:: Met Goal #2: Increase R shld AAROM flex 95 abd 90 Goal to be met by: 12/15/17 Progress towards Goal:: Met Goal #3: pt independent with intial HEP Goal to be met by: 12/15/17 Progress towards Goal:: Met Long-Term Goals Goal #1: report decreased pain allowing increased ability to perform household chore Goal to be met by: 01/22/18 Progress towards goal: Partially Met Goal #2: pt report ability to perform ADL's independently with less pain Goal to be met by: 01/22/18 Progress towards goal: Partially Met Goal #3: Increase R shld ROM flex 120 abd 110, IR WFL's Goal to be met by: 01/22/18 Progress towards goal: Met Goal #4: pt independent with HEP to maintain gains after dc Goal to be met by: 01/22/18 Progress towards goal: Partially Met Plan PLAN OF CARE EXPIRES ON:: 01/22/18 ORDER # VISITS AND/OR THROUGH DATE: 01/22/18 PLAN: Continue progression of strengthening to increase patients functional activity level.
--- NOTE | 2018-01-08 15:56 | RS.OPPTDN ---
Subjective Date of Note: 01/08/18 Visit #: 15 Date of Evaluation: 12/01/17 Payer Source: MEDICARE Treatment Diagnosis: R shld pain, s/p reverse total shld Current Subjective/complaints:: Patient reports reaching is getting better. Reports he has difficulty with reaching at and above shoulder height. *Precautions: limit ext, ER Pain Assessment - Pain Description Pain Location: right shoulder and upper arm Current Pain Intensity: mild to mod in upper arm with reaching Interventions - Exercise/Activities/Manual Therapy Exercises/Activities: PROM of the right shoulder. Isometrics right shoulder flex , add, ext, abd, biceps, triceps. Proprioception with 3# cuff weight overhead for cw and ccw circles. 8# wand for chest press and short overhead flexion. Short resistive flex, ext, horz add, and abd with green therabands. Bilateral shoulder horz abd and diagonals with green theraband. Resistive pulldowns with wand and green theraband. Overhead ball toss. In sitting, scap retraction with 3# wand and green theraband. Active right shoulder flexion and abduction. Overhead flexion with 3# wand. Chest passing and overhead pass. UBE 3mins. Shelf reaching to shoulder height with 1# and 2# weights, to shoulder height, some difficulty. Total minutes of Exercise: 41mins/44mins Manual Therapy: n/a HOME EXERCISE PROGRAM: pt received HEP including isometric shld flex, abd, add as well as pendulum ex. Wand for chest press in supine. Shoulder shrugs and scap retraction. - Objective Findings Observations,measurements,etc.: Passive right shoulder flexion to 174 degrees in supine. - Charges Timed Code Treatment Minutes: 41mins Total Treatment Time: 44mins Procedures billed for this date of service:: EX3 Assessment: Continues to progress with strengthening and reports of increased functional activity level. Patient Education: Home Exercise Program, Activity Modification Patient demonstrates compliance with HEP?: Yes Short Term Goals Goal #1: report decreased interruptions of sleep due to pain, able to sleep 2-3 hrs Goal to be met by: 12/15/17 Progress towards Goal:: Met Goal #2: Increase R shld AAROM flex 95 abd 90 Goal to be met by: 12/15/17 Progress towards Goal:: Met Goal #3: pt independent with intial HEP Goal to be met by: 12/15/17 Progress towards Goal:: Met [employer] Goals Goal #1: report decreased pain allowing increased ability to perform household chore Goal to be met by: 01/22/18 Progress towards goal: Partially Met Goal #2: pt report ability to perform ADL's independently with less pain Goal to be met by: 01/22/18 Progress towards goal: Partially Met Goal #3: Increase R shld ROM flex 120 abd 110, IR WFL's Goal to be met by: 01/22/18 Progress towards goal: Met Goal #4: pt independent with HEP to maintain gains after dc Goal to be met by: 01/22/18 Progress towards goal: Partially Met Plan PLAN OF CARE EXPIRES ON:: 01/22/18 ORDER # VISITS AND/OR THROUGH DATE: 01/22/18 PLAN: Progress with strengtheing to increase ability with functional daily activities.
--- NOTE | 2018-01-11 15:31 | RS.OPPTDN ---
Subjective Date of Note: 01/11/18 Visit #: 16 Date of Evaluation: 12/01/17 Payer Source: MEDICARE Treatment Diagnosis: R shld pain, s/p reverse total shld Current Subjective/complaints:: Patient reports active reaching is improving, but continues to have a "catch" at about 70-80 degrees active flexion. *Precautions: limit ext, ER Pain Assessment - Pain Description Pain Location: Right shoulder, upper arm Current Pain Intensity: mod Interventions - Exercise/Activities/Manual Therapy Exercises/Activities: PROM of the right shoulder. Isometrics right shoulder flex , add, ext, abd, biceps, triceps. Proprioception with 2# and 3# weights overhead for cw and ccw circles. 8# wand for chest press and short overhead flexion. Short resistive flex, ext, horz add, and abd with blue therabands. Bilateral shoulder horz abd and diagonals with red and green therabands. In sitting, scap retraction with 3# wand and green theraband. Active right shoulder flexion and abduction. Overhead flexion with 3# wand. Chest passing and overhead pass. UBE 3mins. Shelf reaching with 1# and 2# weights. Red theraband for resistive shoulder flex, ext, add, and abd, 3s/10reps each. Large therapy ball with "ball on wall" using both UE's. Total minutes of Exercise: 42mins Manual Therapy: n/a HOME EXERCISE PROGRAM: pt received HEP including isometric shld flex, abd, add as well as pendulum ex. Wand for chest press in supine. Shoulder shrugs and scap retraction. - Charges Timed Code Treatment Minutes: 42mins Total Treatment Time: 45mins Procedures billed for this date of service:: EX3 Assessment: Patient progressing well with reaching and should be able to continue HEP as instructed following completion of treatment series. Patient Education: Home Exercise Program, Home Safety, Activity Modification Patient demonstrates compliance with HEP?: Yes Short Term Goals Goal #1: report decreased interruptions of sleep due to pain, able to sleep 2-3 hrs Goal to be met by: 12/15/17 Progress towards Goal:: Met Goal #2: Increase R shld AAROM flex 95 abd 90 Goal to be met by: 12/15/17 Progress towards Goal:: Met Goal #3: pt independent with intial HEP Goal to be met by: 12/15/17 Progress towards Goal:: Met Residential Goals Goal #1: report decreased pain allowing increased ability to perform household chore Goal to be met by: 01/22/18 Progress towards goal: Met Goal #2: pt report ability to perform ADL's independently with less pain Goal to be met by: 01/22/18 Progress towards goal: Partially Met Goal #3: Increase R shld ROM flex 120 abd 110, IR WFL's Goal to be met by: 01/22/18 Progress towards goal: Met Goal #4: pt independent with HEP to maintain gains after dc Goal to be met by: 01/22/18 Progress towards goal: Partially Met Plan PLAN OF CARE EXPIRES ON:: 01/22/18 ORDER # VISITS AND/OR THROUGH DATE: 01/22/18 PLAN: Continue progression of strengthening and active reaching to increase patients functional activity level.
--- NOTE | 2018-01-15 15:11 | RS.OPPTDN ---
Subjective Date of Note: 01/15/18 Visit #: 17 Date of Evaluation: 12/01/17 Payer Source: MEDICARE Treatment Diagnosis: R shld pain, s/p reverse total shld Current Subjective/complaints:: Patient reports he is pleased with his progress. States he is performing most light to mod ADL's. *Precautions: limit ext, ER Interventions - Exercise/Activities/Manual Therapy Exercises/Activities: PROM of the right shoulder. Isometrics right shoulder flex , add, ext, abd, biceps, triceps. 8# wand for chest press and short overhead flexion. Short resistive flex, ext, horz add, and abd with blue therabands. Bilateral shoulder horz abd and diagonals with green therabands. In sitting, shoulder flex with 3# wand. Active right shoulder flexion and abduction. 2# dumbell for right shoulder flexion and abduction. Chest passing and overhead pass. Ball on the wall with bilateral UE's and then with right only. Total minutes of Exercise: 41mins Manual Therapy: n/a HOME EXERCISE PROGRAM: pt received HEP including isometric shld flex, abd, add as well as pendulum ex. Wand for chest press in supine. Shoulder shrugs and scap retraction. - Objective Findings Observations,measurements,etc.: Active right shoulder flexion 158 degrees, abduction 155 degrees. Passive right shoulder flexion 174 degrees. - Charges Timed Code Treatment Minutes: 41mins Total Treatment Time: 44mins Procedures billed for this date of service:: EX3 Assessment: Patient has progressed well and benefitted from treatment. He is independent with HEP and has met all treatment goals. Patient Education: Home Exercise Program, Education of Plan of Care Patient demonstrates compliance with HEP?: Yes Short Term Goals Goal #1: report decreased interruptions of sleep due to pain, able to sleep 2-3 hrs Goal to be met by: 12/15/17 Progress towards Goal:: Met Goal #2: Increase R shld AAROM flex 95 abd 90 Goal to be met by: 12/15/17 Progress towards Goal:: Met Goal #3: pt independent with intial HEP Goal to be met by: 12/15/17 Progress towards Goal:: Met [employer] Goals Goal #1: report decreased pain allowing increased ability to perform household chore Goal to be met by: 01/22/18 Progress towards goal: Met Goal #2: pt report ability to perform ADL's independently with less pain Goal to be met by: 01/22/18 Progress towards goal: Met Goal #3: Increase R shld ROM flex 120 abd 110, IR WFL's Goal to be met by: 01/22/18 Progress towards goal: Met Goal #4: pt independent with HEP to maintain gains after dc Goal to be met by: 01/22/18 Progress towards goal: Met Plan PLAN OF CARE EXPIRES ON:: 01/22/18 ORDER # VISITS AND/OR THROUGH DATE: 01/22/18 PLAN: Discharge with HEP.
--- NOTE | 2018-01-15 16:06 | RS.OPPTDC ---
Date of Discharge: 01/15/18 Date of Evaluation: 12/01/17 Number of Visits: 17 Treatment Diagnosis: R shld pain, s/p reverse total shld Current Level of Function: Active R shld flex 158 abd 155. Passive R shld flex 174. Independent with HEP. pt has met 7/ goals. Current Complaints/Gains: pt reports he is pleased with his progress and can perform most light to moderate ADL's. pt also reports he is sleeping most of the night. Pain Assessment - Pain Description Pain Location: R shld Pain Description: Aching Pain Description: pain with reaching in Lat upper arm Current Pain Intensity: 0 at rest Functional Outcome Measure UE Functional Index: 69 - G Codes & Severity Modifier G Codes & Modifier: carrying moving and handling Goal cK. carrying moving and handling dc CI Source of G Code score: UE functional index scale Observation - Observation Posture: Forward Head, Rounded Shoulders Handedness: Right Gait - Gait Pattern General Gait Pattern Observation: No Deviations/Normal General Range of Motion: R shld PROM 174. AROM 158, abd 155. LUE and BLE WFL's Muscle Strength: pt able to move in functional ROM R shld Interventions - Exercise/Activities/Manual Therapy Exercises/Activities: n/a Manual Therapy: n/a HOME EXERCISE PROGRAM: pt received HEP including isometric shld flex, abd, add as well as pendulum ex. Wand for chest press in supine. Shoulder shrugs and scap retraction. - Charges Timed Code Treatment Minutes: n/a Total Treatment Time: n/a Procedures billed for this date of service:: n/a Assessment Assessment: pt has met all goals. pt able to perform most light to mod ADL's. pt has significantly improved strength and ROM. Patient Education: Home Exercise Program, Education of Plan of Care Rehab Potential: Good Short Term Goals Goal #1: report decreased interruptions of sleep due to pain, able to sleep 2-3 hrs Goal to be met by: 12/15/17 Progress towards Goal:: Met Goal #2: Increase R shld AAROM flex 95 abd 90 Goal to be met by: 12/15/17 Progress towards Goal:: Met Goal #3: pt independent with intial HEP Goal to be met by: 12/15/17 Progress towards Goal:: Met [employer] Goals Goal #1: report decreased pain allowing increased ability to perform household chore Goal to be met by: 01/22/18 Progress towards goal: Met Goal #2: pt report ability to perform ADL's independently with less pain Goal to be met by: 01/22/18 Progress towards goal: Met Goal #3: Increase R shld ROM flex 120 abd 110, IR WFL's Goal to be met by: 01/22/18 Progress towards goal: Met Goal #4: pt independent with HEP to maintain gains after dc Goal to be met by: 01/22/18 Progress towards goal: Met Plan Reason for Discharge:: All Goals Met
== END 2018-02-02 23:59 ==
PROVIDERS: ATTEND Orthopaedic Surgery
DX: Z47.1 Aftercare following joint replacement surgery (principal); M62.81 Muscle weakness (generalized); M25.511 Pain in right shoulder; Z96.611 Presence of right artificial shoulder joint

== ENCOUNTER 2018-03-30 11:00 | Outpatient (RCR) | payer OTHER ==
[2014-10-18 13:24] VITALS: BMI 30.7
--- NOTE | 2018-03-12 15:44 | RS.OTEVAL ---
Subjective Date of Note: 03/12/18 Visit #: 1 Date of Evaluation: 03/12/18 Payer Source: MEDICARE Date of Onset/Injury/Change in Status: 02/11/18 Surgery Performed?: Yes (Reverse Total Shld R UE) Date of Procedure: 02/11/18 Treatment Diagnosis: S/P CTR Release Treatment Side (optional): Right *Precautions: limit ext, ER History of Condition/Mechanism of Injury: Pt had shoulder surgery in October of 2017, and has had pain in the RUE shoulder down to his elbow. Pt was having wrist pain and had CTR to try to improve the pain. Pt now is reporting RUE numbness from base of hand up to the elbow and pain from the thumb side across the volar aspect of forearm with pain in the Extensor Carpi Radialis Longus. Pt has edema of the Right thenar eminence, and scar tissue from the CTR surgery. Pt has tenderness in the RUE subscapularis, and posterior Right scapula. Functional Limitations: Sleep, Self Care, ADL's, Reaching, Lifting, Carrying Current Complaints/Gains: More problems with the hand up to the elbow since the CTR on 02/11/18. Pain in the RUE shoulder, anterior deltoid, volar forearm to the volar wrist more on the radial aspect of the wrist. Medical History Medical History: Hypertension, Diabetes, Arthritis Medical History Comments:: GERD, polycystic kidney dz, sleep apnea Surgical History: Lumbar Spine, Cholecystectomy Surgical History Comments:: hernia repair, AAA repair Smoking Status: Former smoker Diagnostic Testing/Imaging:: Nerve Conduction Test Hx Home Medications: protonix, lyrica, metformin, methotrexate, lipitor, bystolic, lisinopril, amlodipine besylate, prednisone, furosemide, folic acid, clopidogrel bisulfate, multivitamin, niacin, aspirin, oxycodone Patient's Goals: To get the numbness gone in the Right wrist to forearm. To have a pain free RUE shoulder and to not spill or drop the cup of coffee when his arm starts to shake. Pain Assessment - Pain Description Pain Location: Top of posterior scapula down through the anterior middle deltoid , into the volar aspect of the RUE forearm down the radial aspect of the wrist. Pain Description: throbbing, sharp Current Pain Intensity: 4 Worst Pain Intensity: 8 Other comments regarding pain:: Pt has a difficult time sleeping. Functional Outcome Measures UE Functional Index: 51 - G Codes & Severity Modifier G Codes: Current is CK, Goal is CI Source of G Code score: Carry, moving, and handling. Observation - Observation Inspection: Pt has edema of the Right thumb thenar eminence with pain in the tissue of the base of the thumb. Posture: Forward Head, Rounded Shoulders Handedness: Right Shoulder ROM: Left WFL's - Right Shoulder ROM Right Shoulder Flexion: 142 Right Shoulder Extension: 26 Right Shoulder Abduction: 116 Right Shoulder Internal Rotation: 55 Right Shoulder External Rotation: 35 - Left Shoulder Strength Left Shoulder Flexion: 3- Fair- Left Shoulder Extension: 3- Fair- Left Shoulder Abduction: 3- Fair- Left Shoulder Adduction: 3- Fair- Left Shoulder External Rotation: 3- Fair- Left Shoulder Internal Rotation: 3- Fair- - Right Shoulder Strength Right Shoulder Flexion: 4- Good- Right Shoulder Extension: 3- Fair- Right Shoulder Abduction: 3- Fair- Right Shoulder External Rotation: 3- Fair- Right Shoulder Internal Rotation: 3 Fair Elbow ROM: Left WFL's Elbow Muscle Strength: Left WFL's - Right Elbow ROM Right Elbow Extension: wfl Right Elbow Flexion: 155 Right Elbow Supination: 80 Right Elbow Pronation: 90 Comments: edema of the hypothenar eminence. - Left Elbow Strength Left Elbow Extension: 4 Good Left Elbow Flexion: 4 Good Left Forearm Pronation: 4 Good Left Forearm Supination: 4 Good - Right Elbow Strength Right Elbow Extension: 4 Good Right Elbow Flexion: 4 Good Right Forearm Pronation: 4- Good- Right Forearm Supination: 4- Good- - Right Wrist/Hand ROM Right Wrist Extension: 65 Right Wrist Flexion: 55 Right Wrist Radial Deviation: 15 Right Wrist Ulnar Deviation: 15 Right Forearm Pronation: 90 Right Forearm Supination: 80 - Left Wrist Strength Left Wrist Extension: 4 Good Left Wrist Flexion: 4 Good Left Wrist Radial Deviation: 4 Good Left Wrist Ulnar Deviation: 4 Good Left Forearm Pronation: 4 Good Left Forearm Supination: 4 Good - Shopfitter Strength Left Shopfitter Strength: 55 Right Shopfitter Strength: 52 Shopfitter Strength Left Hand Shopfitter Strength: 55 Right Hand Shopfitter Strength: 52 Dynamometer Testing Position: 2nd Position Palpation Palpation Findings: Tenderness, Trigger Point Sensation Right Upper Extremity: Impaired Left Upper Extremity: Intact/Normal Sensation Description: Pain Interventions - Exercise/Activities Exercise/Activities/Manual Therapy: Manual therapy to the RUE subscapularis, and supraspinatus. Pt scar massage to the CTR scar. HOME EXERCISE PROGRAM: scar massage to volar scar of base of palm for 5 minutes. ice to volar hypothenar eminence and wrist. - Charges Timed Code Treatment Minutes: MT Total Treatment Time: 60 Procedures billed for this date of service:: 60 EVALUATION COMPLEXITY LEVEL: HISTORY: Medium, EXAM OF BODY SYSTEMS: Medium, CLINICAL DECISION MAKING: Medium Assessment Assessment: Pt has edema of the Right thenar eminence, and numbness in the volar forearm. Pain the subscapularis, supraspinatus. Patient Education: Education of diagnosis, Body/Joint mechanics, Home Exercise Program, Education of Plan of Care Rehab Potential: Good Problems/Comments: Pain in RUE shoulder. Numbness in Volar radial RUE forearm. Weakness and limited AROM of RUE shoulder. Short Term Goals Goal #1: Pt to increase supination of RUE to 85 deg. Goal to be met by: 03/26/18 Goal #2: Pt to increase mass final armature tester in RUE to 60#. Goal to be met by: 03/26/18 Goal #3: Pt to pain in the RUE to decrease to 2/10. Goal to be met by: 03/26/18 Goal #4: Pt to tolerate isometric exercises for shoulder strength and pain. Goal to be met by: 03/26/18 Gut Dropper Goals Goal #1: Pt to increase supination of RUE to 90 deg. Goal to be met by: 04/09/18 Goal #2: Pt to increase mass final armature tester in RUE to 70#. Goal to be met by: 04/09/18 Goal #3: Pt to pain in the RUE to decrease to 1-2/10. Goal to be met by: 04/09/18 Goal #4: Pt to be independent with Home exercise programs. Goal to be met by: 04/09/18 Plan - Treatment to be provided Procedures: Therapeutic Exercises, Therapeutic Activity, Neuromuscular Rehab, Manual Therapy Modalities: Electrical Stimulation, Ultrasound/Phonophoresis, Cryotherapy, Hot Packs - Treatment Plan Frequency: 3 X week Duration: 4 weeks ORDER # VISITS AND/OR THROUGH DATE: 12 - Treatment Code (1) Pain in right shoulder Code(s): M25.511 - PAIN IN RIGHT SHOULDER Qualifiers: Chronicity: acute Qualified Code(s): M25.511 - Pain in right shoulder Comments: M25.511 Rue shoulder pain (2) S/P carpal tunnel release Code(s): Z98.890 - OTHER SPECIFIED POSTPROCEDURAL STATES Comments: Z98.890 s/p carpal tunnel release (3) Muscle weakness (generalized) Code(s): M62.81 - MUSCLE WEAKNESS (GENERALIZED) Comments: M62.81 muscle weakness
--- NOTE | 2018-03-15 13:19 | RS.OTDNOTE ---
Subjective Date of Note: 03/15/18 Visit #: 2 Date of Evaluation: 03/12/18 Payer Source: MEDICARE Treatment Diagnosis: S/P CTR Release *Precautions: limit ext, ER Current Complaints/Gains: Pt with c/o forearm numbness. States good compliance of HEP/applying CP. States c/o pain in anterior shoulder and "stiffness" in (R ) hand. Pain Assessment - Pain Description Pain Location: Top of posterior scapula down through the anterior middle deltoid , into the volar aspect of the RUE forearm down the radial aspect of the wrist. Pain Description: throbbing, sharp Modalities - Treatment Modality: Ultrasound Parameters/Method Applied: .05-1.0w/cm2 x 7 mins to hypothenar eminence and 7 mins to anterior shoulder. - Hot Pack/Cryotherapy Treatment: Hot Pack Comments:: to R shoulder prior to TE/PROM Interventions - Exercise/Activities Exercise/Activities/Manual Therapy: Manual therapy to the RUE subscapularis, supraspinatus, along volar forearm and wrist/hand. Pt scar massage to the CTR scar with pt ed for self scar massage. Pt also ed on and completed isometric ex x 4 directions 04/05. HOME EXERCISE PROGRAM: scar massage to volar scar of base of palm for 5 minutes. ice to volar hypothenar eminence and wrist. - Charges Timed Code Treatment Minutes: 45 Total Treatment Time: 48 Procedures billed for this date of service:: [facility] [place] Assessment Patient Education: Education of diagnosis, Body/Joint mechanics, Home Exercise Program, Home Safety, Activity Modification, Education of Plan of Care Patient demonstrates compliance with HEP?: Yes Short Term Goals Goal #1: Pt to increase supination of RUE to 85 deg. Goal to be met by: 03/26/18 Progress towards goal: Progressing Goal #2: Pt to increase mass school community relations coordinator in RUE to 60#. Goal to be met by: 03/26/18 Progress towards goal: Progressing Goal #3: Pt to pain in the RUE to decrease to 2/10. Goal to be met by: 03/26/18 Progress towards goal: Progressing Goal #4: Pt to tolerate isometric exercises for shoulder strength and pain. Goal to be met by: 03/26/18 Progress towards goal: Progressing Assisted Goals Goal #1: Pt to increase supination of RUE to 90 deg. Goal to be met by: 04/09/18 Progress towards goal: Progressing Goal #2: Pt to increase mass school community relations coordinator in RUE to 70#. Goal to be met by: 04/09/18 Progress towards goal: Progressing Goal #3: Pt to pain in the RUE to decrease to 1-2/10. Goal to be met by: 04/09/18 Progress towards goal: Progressing Goal #4: Pt to be independent with Home exercise programs. Goal to be met by: 04/09/18 Progress towards goal: Progressing Plan PLAN OF CARE EXPIRES ON:: 04/09/18 ORDER # VISITS AND/OR THROUGH DATE: 12 PLAN: Cont per POC to max fx strength with decreased c/o pain and numbness for completion of ADL's
--- NOTE | 2018-03-17 13:15 | RS.OTDNOTE ---
Subjective Date of Note: 03/17/18 Visit #: 3 Date of Evaluation: 03/12/18 Payer Source: MEDICARE Treatment Diagnosis: S/P CTR Release *Precautions: limit ext, ER Current Complaints/Gains: Pt states he is supposed to have surgery on his (L) UE but is not planning on unless his (R) UE "starts to feel better". States he is attending his chiropractor [facility] x 1 weekly. Pain Assessment - Pain Description Pain Location: Top of posterior scapula down through the anterior middle deltoid , into the volar aspect of the RUE forearm down the radial aspect of the wrist. Pain Description: throbbing, sharp Modalities - Treatment Modality: Ultrasound Parameters/Method Applied: 1.0-1.5w/cm2 x 7 mins to his hand and x7 mins to his anterior shoulder. Patient Position: Sitting - Hot Pack/Cryotherapy Treatment: Cryotherapy Comments:: CPx10 mins Interventions - Exercise/Activities Exercise/Activities/Manual Therapy: Manual therapy to the RUE subscapularis, supraspinatus, along volar forearm and wrist/hand. Pt scar massage to the CTR scar with pt ed for self scar massage. Pt also ed on and completed isometric ex x 4 directions 04/05 with continued ed for HEP. HOME EXERCISE PROGRAM: scar massage to volar scar of base of palm for 5 minutes. ice to volar hypothenar eminence and wrist. - Objective Findings Objective Findings:: Pain increase with shoulder adduction and ER/IR. - Charges Timed Code Treatment Minutes: 50 Total Treatment Time: 59 Procedures billed for this date of service:: CP US EX MT Assessment Patient Education: Education of diagnosis, Body/Joint mechanics, Home Exercise Program, Home Safety, Activity Modification, Education of Plan of Care Patient demonstrates compliance with HEP?: Yes Short Term Goals Goal #1: Pt to increase supination of RUE to 85 deg. Goal to be met by: 03/26/18 Progress towards goal: Progressing Goal #2: Pt to increase mass automatic transmission mechanic in RUE to 60#. Goal to be met by: 03/26/18 Progress towards goal: Met Comments: 62# Goal #3: Pt to pain in the RUE to decrease to 2/10. Goal to be met by: 03/26/18 Progress towards goal: Progressing Goal #4: Pt to tolerate isometric exercises for shoulder strength and pain. Goal to be met by: 03/26/18 Progress towards goal: Partially Met Penitentiary Goals Goal #1: Pt to increase supination of RUE to 90 deg. Goal to be met by: 04/09/18 Progress towards goal: Progressing Goal #2: Pt to increase mass automatic transmission mechanic in RUE to 70#. Goal to be met by: 04/09/18 Progress towards goal: Progressing Goal #3: Pt to pain in the RUE to decrease to 1-2/10. Goal to be met by: 04/09/18 Progress towards goal: Progressing Goal #4: Pt to be independent with Home exercise programs. Goal to be met by: 04/09/18 Progress towards goal: Progressing Plan PLAN OF CARE EXPIRES ON:: 04/09/18 ORDER # VISITS AND/OR THROUGH DATE: 12 PLAN: Cont per POC to max fx UE use during all ADL's with decreased c/o pain and numbness in hand.
--- NOTE | 2018-03-19 13:00 | RS.OTDNOTE ---
Subjective Date of Note: 03/19/18 Visit #: 4 Date of Evaluation: 03/12/18 Payer Source: MEDICARE Treatment Diagnosis: S/P CTR Release *Precautions: limit ext, ER Current Complaints/Gains: Pt states decreased c/o pain following tx. States numbess continues in forearm but hand feels better. Pain Assessment - Pain Description Pain Description: Tightness, Radiating, Dull Pain Location: Top of posterior scapula down through the anterior middle deltoid , into the volar aspect of the RUE forearm down the radial aspect of the wrist. Pain Description: throbbing, sharp Current Pain Intensity: 2 Worst Pain Intensity: 4 Modalities - Treatment Modality: Ultrasound Parameters/Method Applied: 1.0-1.5w/cm2 x 7 mins to hand/wrist and x 10 mins to anterior/posterior shoulder. Patient Position: Sitting - Hot Pack/Cryotherapy Treatment: Cryotherapy Comments:: x10 mins following tx Interventions - Exercise/Activities Exercise/Activities/Manual Therapy: Manual therapy to the RUE subscapularis, supraspinatus, along volar forearm and wrist/hand. Pt scar massage to the CTR scar with pt ed for self scar massage. Pt also ed on and completed isometric ex x 4 directions 04/05 with continued ed for HEP. HOME EXERCISE PROGRAM: scar massage to volar scar of base of palm for 5 minutes. ice to volar hypothenar eminence and wrist. - Objective Findings Objective Findings:: Pain increase with shoulder adduction and ER/IR. - Charges Timed Code Treatment Minutes: 48 Total Treatment Time: 59 Procedures billed for this date of service:: CP US EX MT Assessment Patient Education: Education of diagnosis, Body/Joint mechanics, Home Exercise Program, Home Safety, Activity Modification, Education of Plan of Care Patient demonstrates compliance with HEP?: Yes Short Term Goals Goal #1: Pt to increase supination of RUE to 85 deg. Goal to be met by: 03/26/18 Progress towards goal: Progressing Goal #2: Pt to increase mass computer publisher in RUE to 60#. Goal to be met by: 03/26/18 Progress towards goal: Met Goal #3: Pt to pain in the RUE to decrease to 2/10. Goal to be met by: 03/26/18 Progress towards goal: Progressing Goal #4: Pt to tolerate isometric exercises for shoulder strength and pain. Goal to be met by: 03/26/18 Progress towards goal: Met Urologist Md Goals Goal #1: Pt to increase supination of RUE to 90 deg. Goal to be met by: 04/09/18 Progress towards goal: Progressing Goal #2: Pt to increase mass computer publisher in RUE to 70#. Goal to be met by: 04/09/18 Progress towards goal: Progressing Goal #3: Pt to pain in the RUE to decrease to 1-2/10. Goal to be met by: 04/09/18 Progress towards goal: Progressing Goal #4: Pt to be independent with Home exercise programs. Goal to be met by: 04/09/18 Progress towards goal: Progressing Plan PLAN OF CARE EXPIRES ON:: 04/09/18 ORDER # VISITS AND/OR THROUGH DATE: 12 PLAN: Cont per POC to max fx UE strength and AROM
--- NOTE | 2018-03-22 13:20 | RS.OTDNOTE ---
Subjective Date of Note: 03/22/18 Visit #: 5 Date of Evaluation: 03/12/18 Payer Source: MEDICARE Treatment Diagnosis: S/P CTR Release *Precautions: limit ext, ER Current Complaints/Gains: Pt states increased c/o pain in his B UE's. States (L ) UE is hurting more and he is relying on his (R) and is increasing pain in it. States he may get a corisone shot in his (L) UE. Pain Assessment - Pain Description Pain Description: Tightness, Radiating, Dull Pain Location: Top of posterior scapula down through the anterior middle deltoid , into the volar aspect of the RUE forearm down the radial aspect of the wrist. Pain Description: throbbing, sharp Current Pain Intensity: 3 Worst Pain Intensity: 7 Modalities - Treatment Modality: Ultrasound Parameters/Method Applied: Pulsed x 20%, 1mhz-1.0w/cm2 x 20 mins to shoulder. Treatment Area: shoulder and hand Patient Position: Sitting - Hot Pack/Cryotherapy Treatment: Cryotherapy Comments:: CPX10 mins following tx Interventions - Exercise/Activities Exercise/Activities/Manual Therapy: Manual therapy to the RUE subscapularis, supraspinatus, along volar forearm and wrist/hand. Pt scar massage to the CTR scar with pt ed for self scar massage. Pt also ed on and completed isometric ex x 4 directions 04/05 with continued ed for HEP. HOME EXERCISE PROGRAM: scar massage to volar scar of base of palm for 5 minutes. ice to volar hypothenar eminence and wrist. - Objective Findings Objective Findings:: Pain increase with shoulder adduction and ER/IR. - Charges Timed Code Treatment Minutes: 55 Total Treatment Time: 65 Procedures billed for this date of service:: CP US MT EX Assessment Patient Education: Education of diagnosis, Body/Joint mechanics, Home Exercise Program, Home Safety, Activity Modification, Education of Plan of Care Patient demonstrates compliance with HEP?: Yes Short Term Goals Goal #1: Pt to increase supination of RUE to 85 deg. Goal to be met by: 03/26/18 Progress towards goal: Partially Met Goal #2: Pt to increase mass vacuum cooker operator in RUE to 60#. Goal to be met by: 03/26/18 Progress towards goal: Met Goal #3: Pt to pain in the RUE to decrease to 2/10. Goal to be met by: 03/26/18 Progress towards goal: Regressing Comments: Pain increased over the wknd Goal #4: Pt to tolerate isometric exercises for shoulder strength and pain. Goal to be met by: 03/26/18 Progress towards goal: Met Shelter Goals Goal #1: Pt to increase supination of RUE to 90 deg. Goal to be met by: 04/09/18 Progress towards goal: Progressing Goal #2: Pt to increase mass vacuum cooker operator in RUE to 70#. Goal to be met by: 04/09/18 Progress towards goal: Progressing Goal #3: Pt to pain in the RUE to decrease to 1-2/10. Goal to be met by: 04/09/18 Progress towards goal: Progressing Goal #4: Pt to be independent with Home exercise programs. Goal to be met by: 04/09/18 Progress towards goal: Progressing Plan PLAN OF CARE EXPIRES ON:: 04/09/18 ORDER # VISITS AND/OR THROUGH DATE: 12 PLAN: .Cont per POC to max fx UE strength/RoM with decreased c/o pain.
--- NOTE | 2018-03-24 14:22 | RS.OTDNOTE ---
Subjective Date of Note: 03/24/18 Visit #: 6 Date of Evaluation: 03/12/18 Payer Source: MEDICARE Treatment Diagnosis: S/P CTR Release *Precautions: limit ext, ER Current Complaints/Gains: Pt continues stating some improvement with his UE. Pt with tender points in several anterior/posterior scapula and deltoid areas with shooting pain down forearm and wrist. Pain Assessment - Pain Description Pain Description: Tightness, Radiating, Dull Pain Location: Top of posterior scapula down through the anterior middle deltoid , into the volar aspect of the RUE forearm down the radial aspect of the wrist. Pain Description: throbbing, sharp Current Pain Intensity: 3 Worst Pain Intensity: 6 Modalities - Treatment Modality: Ultrasound Parameters/Method Applied: Pulsed x 20%, 20 mins at .05-1.0w/cm2 Treatment Area: scapula and anterior shoulder Patient Position: Sitting - Hot Pack/Cryotherapy Treatment: Hot Pack (x10 mins) Interventions - Exercise/Activities Exercise/Activities/Manual Therapy: Manual therapy to the RUE subscapularis, supraspinatus, along volar forearm and wrist/hand. Pt scar massage to the CTR scar with pt ed for self scar massage. Pt also ed on and completed isometric ex x 4 directions 04/05 with continued ed for HEP. ER-hold/release performed during PROM/AROM during US. HOME EXERCISE PROGRAM: scar massage to volar scar of base of palm for 5 minutes. ice to volar hypothenar eminence and wrist. - Objective Findings Objective Findings:: Pain increase with shoulder adduction and ER/IR. - Charges Timed Code Treatment Minutes: 60 Total Treatment Time: 68 Procedures billed for this date of service:: US MT2 Assessment Patient Education: Education of diagnosis, Body/Joint mechanics, Home Exercise Program, Home Safety, Activity Modification, Education of Plan of Care Patient demonstrates compliance with HEP?: Yes Short Term Goals Goal #1: Pt to increase supination of RUE to 85 deg. Goal to be met by: 03/26/18 Progress towards goal: Met Goal #2: Pt to increase mass blasting helper in RUE to 60#. Goal to be met by: 03/26/18 Progress towards goal: Met Goal #3: Pt to pain in the RUE to decrease to 2/10. Goal to be met by: 03/26/18 Progress towards goal: Progressing Goal #4: Pt to tolerate isometric exercises for shoulder strength and pain. Goal to be met by: 03/26/18 Progress towards goal: Met Computer Recycling Worker Goals Goal #1: Pt to increase supination of RUE to 90 deg. Goal to be met by: 04/09/18 Progress towards goal: Progressing Goal #2: Pt to increase mass blasting helper in RUE to 70#. Goal to be met by: 04/09/18 Progress towards goal: Progressing Goal #3: Pt to pain in the RUE to decrease to 1-2/10. Goal to be met by: 04/09/18 Progress towards goal: Progressing Goal #4: Pt to be independent with Home exercise programs. Goal to be met by: 04/09/18 Progress towards goal: Partially Met Plan PLAN OF CARE EXPIRES ON:: 04/09/18 ORDER # VISITS AND/OR THROUGH DATE: 12 PLAN: Continue per POC to max fx UE AROM/strength.
--- NOTE | 2018-03-29 08:57 | RS.OTDNOTE ---
Subjective Date of Note: 03/26/18 Visit #: 7 Date of Evaluation: 03/12/18 Payer Source: MEDICARE Treatment Diagnosis: S/P CTR Release *Precautions: limit ext, ER Current Complaints/Gains: Pt states hand is feeling better but still believes it is stimming from his shoulder. Pt states good compliance with CP application and HEP of stretching and isometric ex's. Pt agreeable to decreasing visits to 2x/wk. Pain Assessment - Pain Description Pain Description: Tightness, Radiating, Dull Pain Location: Top of posterior scapula down through the anterior middle deltoid , into the volar aspect of the RUE forearm down the radial aspect of the wrist. Pain Description: throbbing, sharp Current Pain Intensity: 1-2 Modalities - Treatment Modality: Electrical Stim Unattended Parameters/Method Applied: x4 pads x20 mins Patient Position: Sitting - Hot Pack/Cryotherapy Treatment: Hot Pack, Cryotherapy Interventions - Exercise/Activities Exercise/Activities/Manual Therapy: Manual therapy to the RUE subscapularis, supraspinatus, along volar forearm and wrist/hand. Pt scar massage to the CTR scar with pt ed for self scar massage. Pt also ed on and completed isometric ex x 4 directions 04/05 with continued ed for HEP. ER-hold/release performed during PROM/AROM during US. HOME EXERCISE PROGRAM: scar massage to volar scar of base of palm for 5 minutes. ice to volar hypothenar eminence and wrist. - Objective Findings Objective Findings:: Pain increase with shoulder adduction and ER/IR. - Charges Timed Code Treatment Minutes: 62 Total Treatment Time: 71 Procedures billed for this date of service:: HP ESTIM MT2 EX Assessment Patient Education: Education of diagnosis, Body/Joint mechanics, Home Exercise Program, Home Safety, Activity Modification, Education of Plan of Care Patient demonstrates compliance with HEP?: Yes Short Term Goals Goal #1: Pt to increase supination of RUE to 85 deg. Goal to be met by: 03/26/18 Progress towards goal: Met Goal #2: Pt to increase mass bag grader in RUE to 60#. Goal to be met by: 03/26/18 Progress towards goal: Met Goal #3: Pt to pain in the RUE to decrease to 2/10. Goal to be met by: 03/26/18 Progress towards goal: Partially Met Goal #4: Pt to tolerate isometric exercises for shoulder strength and pain. Goal to be met by: 03/26/18 Progress towards goal: Met Alf Goals Goal #1: Pt to increase supination of RUE to 90 deg. Goal to be met by: 04/09/18 Progress towards goal: Progressing Goal #2: Pt to increase mass bag grader in RUE to 70#. Goal to be met by: 04/09/18 Progress towards goal: Progressing Goal #3: Pt to pain in the RUE to decrease to 1-2/10. Goal to be met by: 04/09/18 Progress towards goal: Progressing Goal #4: Pt to be independent with Home exercise programs. Goal to be met by: 04/09/18 Progress towards goal: Partially Met Plan PLAN OF CARE EXPIRES ON:: 04/09/18 ORDER # VISITS AND/OR THROUGH DATE: 12 PLAN: Continue per POC to max fx I, sensation and strength with decreased c/o pain
--- NOTE | 2018-03-30 14:09 | RS.OTDNOTE ---
Subjective Date of Note: 03/30/18 Visit #: 8 Date of Evaluation: 03/12/18 Payer Source: MEDICARE Treatment Diagnosis: S/P CTR Release *Precautions: limit ext, ER Current Complaints/Gains: Pt states increased UE/shoulder pain since Sat when he reached for a towell following his shower. States "sharp pain" and feels like his shoulder "ripped apart" with continued/decreased c/o pain since. States he is returning to [place] this wk. States his hobby of shooting guns is too painful right now 2* to recoil of the gun on his palm. C/o pain increased to 6- 7/10 with bicep curl, 0 added resist. Pain Assessment - Pain Description Pain Description: Tightness, Radiating, Dull Pain Location: Top of posterior scapula down through the anterior middle deltoid , into the volar aspect of the RUE forearm down the radial aspect of the wrist. Pain Description: throbbing, sharp Current Pain Intensity: 2 Worst Pain Intensity: 6-7 Modalities - Treatment Modality: Ultrasound Parameters/Method Applied: .05wcm/2 x10 mins to palm of hand Patient Position: Sitting - Hot Pack/Cryotherapy Treatment: Hot Pack Comments:: Shoulder HP x10 mins Interventions - Exercise/Activities Exercise/Activities/Manual Therapy: Manual therapy along volar forearm and wrist /hand. Pt scar massage to the CTR scar with pt ed for self scar massage continued. Pt also ed on and completed isometric ex x 4 directions 04/05 with continued ed for HEP. Pt instructed on increased use of CP to shoulder and resting UE. HOME EXERCISE PROGRAM: scar massage to volar scar of base of palm for 5 minutes. ice to volar hypothenar eminence and wrist. - Objective Findings Objective Findings:: Pain increase with shoulder adduction and ER/IR. - Charges Timed Code Treatment Minutes: 50 Total Treatment Time: 50 Procedures billed for this date of service:: HP US EX Assessment Patient Education: Education of diagnosis, Body/Joint mechanics, Home Exercise Program, Home Safety, Activity Modification, Education of Plan of Care Patient demonstrates compliance with HEP?: Yes Short Term Goals Goal #1: Pt to increase supination of RUE to 85 deg. Goal to be met by: 03/26/18 Progress towards goal: Met Goal #2: Pt to increase mass abrasive mixer helper in RUE to 60#. Goal to be met by: 03/26/18 Progress towards goal: Met Goal #3: Pt to pain in the RUE to decrease to 2/10. Goal to be met by: 03/26/18 Progress towards goal: Partially Met Goal #4: Pt to tolerate isometric exercises for shoulder strength and pain. Goal to be met by: 03/26/18 Progress towards goal: Met Intermediate Goals Goal #1: Pt to increase supination of RUE to 90 deg. Goal to be met by: 04/09/18 Progress towards goal: Met Goal #2: Pt to increase mass abrasive mixer helper in RUE to 70#. Goal to be met by: 04/09/18 Progress towards goal: Progressing Goal #3: Pt to pain in the RUE to decrease to 1-2/10. Goal to be met by: 04/09/18 Progress towards goal: Progressing Goal #4: Pt to be independent with Home exercise programs. Goal to be met by: 04/09/18 Progress towards goal: Met Plan PLAN OF CARE EXPIRES ON:: 04/09/19 ORDER # VISITS AND/OR THROUGH DATE: 12 PLAN: DC pt at this time. Pt to have follow up visit with . Pt I with HEP and applying CP.
--- NOTE | 2018-03-31 09:55 | RS.OTDCSUM ---
Subjective Date of Discharge: 03/30/18 Date of Evaluation: 03/12/18 Number of Visits: 8 Treatment Diagnosis: Right CTR Current Level of Function: 36.25% impaired, or CJ for Carry, moving, and handling. Pt having sharp pain in the Right shoulder when he reached for a towel. Pain increased to 6-7/10. Current pain is 2/10. Pt is not happy with his progress. Pt is not happy with the pain that runs down his Right anterior scapula, deltoid down to his wrist. Pt has increased pain in the bicep. Pt is driving with pain. Pt is having difficulty donning his shirts. Current Complaints/Gains: Pain in the RUE from top of scapula down thru anterior deltoid. Pt is not happy with this last surgery and the increased pain and decreased voltage tester in the RUE. Pt wants to get a second opinion. Pain Assessment - Pain Description Pain Description: Tightness, Radiating, Dull Pain Location: Top of posterior scapula down through the anterior middle deltoid , into the volar aspect of the RUE forearm down the radial aspect of the wrist. Pain Description: throbbing, sharp Current Pain Intensity: 2 Worst Pain Intensity: 7 Other comments regarding pain:: Sharp pain when reaching RUE for a towel when getting out of shower. Functional Outcome Measures UE Functional Index: 36 - G Codes & Severity Modifier G Codes: CJ at 36% impaired. Goal was CI Source of G Code score: Carry, moving, and handling. Observation - Observation Posture: Normal Handedness: Right Shoulder ROM: Bilaterally WFL's - Right Shoulder Strength Right Shoulder Flexion: 3+ Fair+ Right Shoulder Extension: 3+ Fair+ Right Shoulder Abduction: 3 Fair Right Shoulder Adduction: 3+ Fair+ Right Shoulder External Rotation: 3 Fair Right Shoulder Internal Rotation: 3 Fair Elbow ROM: Bilaterally WFL's Elbow Muscle Strength: Bilaterally WFL's Wrist ROM: Bilaterally WFL's Wrist Muscle Strength: Bilaterally WFL's - Student Development Specialist Strength Left Student Development Specialist Strength: 65 Right Student Development Specialist Strength: 62 Palpation Palpation Findings: Tenderness, Trigger Point Comments:: Right Shoulder tenderness and down the arm. Sensation Right Upper Extremity: Impaired Left Upper Extremity: Intact/Normal Sensation Description: Pain Interventions - Exercise/Activities Exercise/Activities/Manual Therapy: Manual therapy along volar forearm and wrist /hand. Pt scar massage to the CTR scar with pt ed for self scar massage continued. Pt also ed on and completed isometric ex x 4 directions 04/05 with continued ed for HEP. Pt instructed on increased use of CP to shoulder and resting UE. HOME EXERCISE PROGRAM: scar massage to volar scar of base of palm for 5 minutes. ice to volar hypothenar eminence and wrist. - Objective Findings Objective Findings:: Pain increase with shoulder adduction and ER/IR. - Charges Timed Code Treatment Minutes: . Total Treatment Time: . Procedures billed for this date of service:: . Assessment Assessment: Pt believes that he needs a second opinion. Pt continues to have pain in the RUE shoulder and now it runs from the top of the scapula down the anterior deltoid through the bicep and down to the right hand. Pt has no shoulder abduction due to pain. Patient Education: Home Exercise Program, Education of Plan of Care Rehab Potential: Good Problems/Comments: Pt has increased pain in the RUE. Pt has increased voltage tester strength to 62# in the RUE. Pt has impaired sensation in the right forearm from wrist to elbow. Short Term Goals Goal #1: Pt to increase supination of RUE to 85 deg. Goal to be met by: 03/26/18 Progress towards goal: Met Goal #2: Pt to increase mass voltage tester in RUE to 60#. Goal to be met by: 03/26/18 Progress towards goal: Met Goal #3: Pt to pain in the RUE to decrease to 2/10. Goal to be met by: 03/26/18 Progress towards goal: Partially Met Goal #4: Pt to tolerate isometric exercises for shoulder strength and pain. Goal to be met by: 03/26/18 Progress towards goal: Met Granulizing Machine Operator Goals Goal #1: Pt to increase supination of RUE to 90 deg. Goal to be met by: 04/09/18 Progress towards goal: Met Goal #2: Pt to increase mass voltage tester in RUE to 70#. Goal to be met by: 04/09/18 Progress towards goal: Progressing Goal #3: Pt to pain in the RUE to decrease to 1-2/10. Goal to be met by: 04/09/18 Progress towards goal: Progressing Goal #4: Pt to be independent with Home exercise programs. Goal to be met by: 04/09/18 Progress towards goal: Met Plan Reason for Discharge:: Self-Discharge Comments: Pt is going for a second opinion due to increased pain in the RUE.
== END 2018-04-04 23:59 ==
PROVIDERS: ATTEND Orthopaedic Surgery
DX: Z47.89 Encounter for other orthopedic aftercare (principal); G56.01 Carpal tunnel syndrome, right upper limb; Z98.890 Other specified postprocedural states

== ENCOUNTER 2018-11-27 19:06 | Emergency (ER) ==
[2018-11-27] MEDS ORDERED: NITROSTAT SL STA (19:15)
[2018-11-27] MEDS ORDERED: SODIUM CHLORIDE 1,000 ML IV STA (19:15)
[2018-11-27] MEDS ORDERED: ZOFRAN 4 MG/2 ML IVP STA (19:15)
[2018-11-27 19:23] VITALS: BP 178/92; TEMP 98; BMI 31.6
--- NOTE | 2018-11-27 19:27 | ED.PDOC ---
General ED Provider: Dr. JOSH HESS Chief Complaint: Chest Pain Stated Complaint: Patient is a 78 year old male who has a history of CAD with multple stents and AAA repair who comes to the ER with complaints of Chest pain associated with Nausea, vomiting and Diaphresis. Took a Nitroglycerine at home which did not help much. Time Seen by Physician: 19:24 Mode of Arrival: Walk-In Information Source: Patient Primary Care Provider: SHAHRAM AMAYA Nursing and Triage Documentation Reviewed and Agree: Yes Does patient meet sepsis criteria?: No System Inflammatory Response Syndrome: Not Applicable Sepsis Protocol: For patient's 13 years and over: Temp is 96.8 and below OR 101 and greater Pulse >90 BPM Resp >20/minute Acutely Altered Mental Status Are patient's symptoms suggestive of a new infection, such as: -Pneumonia -Skin, Soft Tissue -Endocarditis -UTI -Bone, Joint Infection -Implantable Device -Acute Abdominal Infection -Wound Infection -Meningitis -Blood Stream Catheter Infection -Unknown Cardiovascular Complaint Exam - Chest Pain Complaint/Exam Onset: Gradual Duration: 1 day Symptoms Are: Still present Timing: Intermittent Initial Severity: Severe Location: Reports: Midsternal Pain Radiates: Reports: Left shoulder Character: Reports: Aching Alleviating: Reports: None Associated Signs and Symptoms: Reports: Diaphoresis, Nausea, Vomiting Related Surgical History: Reports: PTCA/Stent History of Healthcare-Acquired Pneumonia: Reports: No AMI/ACS Risk Factors: Reports: Nitroglycerine use Prior Care for this Complaint: No Recent Stress Test: Yes (one month ago prior to Sholder surgery ) Recent Echo/LV Function: No JVD Present: No Subcutaneous Emphysema Present: No Diminshed Breath Sounds: No Reproducible Chest Wall Pain: No Bilateral Pulses Present: No Unequal Pulses Noted: No If Risk Factors for AMI/ACS Consider: EKG, Cardiac Enzymes, Aspirin Population Geneticist Consulted: No Differential Diagnoses: ACS, Unstable Angina Quality Indicators For Acute [place] or Cardiac Chest Pain: EKG in 10min. Quality Indicator For Non-Traumatic Chest Pain/Syncope: EKG Performed Review of Systems - Review Of Systems Constitutional: Reports: No symptoms Eyes: Reports: No symptoms Ears, Nose, Mouth, Throat: Reports: No symptoms Respiratory: Reports: Short of air Cardiac: Reports: Chest pain GI: Reports: Nausea, Vomiting : Reports: No symptoms Musculoskeletal: Reports: No symptoms Skin: Reports: Other (Diaphoresis) Neurological: Reports: Anxiety Endocrine: Reports: No symptoms Hematologic/Lymphatic: Reports: No symptoms All Other Systems: Reviewed and Negative Past Medical History - Past Medical History Previously Healthy: Yes Endocrine: Reports: None Cardiovascular: Reports: CAD, Hypertension Respiratory: Reports: None Hematological: Reports: None Gastrointestinal: Reports: None Genitourinary: Reports: None Neuro/Psych: Reports: None Musculoskeletal: Reports: None Cancer: Reports: None - Surgical History General Surgical History: Reports: Stent, Other (AAA repiro ) - Family History Family History: Reports: None - Social History Smoking Status: Former smoker Hx Substance Use: No Alcohol Screening: Occasionally - Immunizations Tetanus Shot up to Date: No (unsure) Physical Exam - Physical Exam Appearance: Ill-appearing, Well-nourished Ill-appearing: Mild Pain Distress: Moderate Eyes: NATHAN, EOMI, Conjunctiva clear ENT: Nose normal, Oropharynx normal Neck: Supple Respiratory: Airway patent, Breath sounds clear, Breath sounds equal, Respirations nonlabored Cardiovascular: RRR, Pulses normal, No rub, No murmur GI/: Soft, Nontender, No masses, Bowel sounds normal, No Organomegaly Musculoskeletal: Normal strength, ROM intact, No edema, No calf tenderness Skin: Warm, Dry, Normal color Neurological: Sensation intact, Motor intact, Reflexes intact, Cranial nerves intact, Alert, Oriented Psychiatric: Anxious Physician Notification - Case Discussed Physician Notified: Dr [email or web address] Time of Notification: 22:10 Critical Care Note - Critical Care Note Total Time (mins): 45 Course - Course Hematology/Chemistry: 11/27/18 19:25 11/27/18 19:25 Orders, Labs, Meds: Lab Review 11/27/18 11/27/18 11/27/18 19:25 19:25 19:25 WBC 4.53 RBC 3.96 L Hgb 12.4 L Hct 36.8 L MCV 92.9 MCH 31.3 H MCHC 33.7 RDW Coeff of Dev 14.6 Plt Count 233 Immature Gran % (Auto) 0.2 Neut % (Auto) 65.5 Lymph % (Auto) 17.2 Bremer % (Auto) 14.3 H Eos % (Auto) 2.4 Baso % (Auto) 0.4 Immature Gran # (Auto) 0.0 Neut # (Auto) 3.0 Lymph # (Auto) 0.8 Bremer # (Auto) 0.7 Eos # (Auto) 0.1 Baso # (Auto) 0.0 Sodium 132.1 L Potassium 4.05 Chloride 93.9 L Carbon Dioxide 28.7 Anion Gap 13.55 BUN 10.4 Creatinine 0.60 Estimated GFR (MDRD) 131.00 BUN/Creatinine Ratio 17.33 Glucose 107.9 H Calcium 9.95 Total Bilirubin 0.75 AST 28.4 ALT 22.3 Alkaline Phosphatase 157.2 H Total Creatine Kinase 87.2 Troponin I < 0.012 NT-Pro-B Natriuret Pep 90.900 Total Protein 7.89 Albumin 4.52 Globulin 3.37 Albumin/Globulin Ratio 1.34 Orders Category Date Time Status EKG-(ED ONLY) Stat CARDIO 11/27/18 19:15 Completed NPO REMINDER: IMAGING ONCE CARE 11/27/18 19:59 Completed ED IV/MEDIPORT/POWERPORT .ONCE EMERGENCY 11/27/18 19:15 Active CBC W/ AUTO DIFF Stat LAB 11/27/18 19:25 Completed COMPREHENSIVE METABOLIC PANEL Stat LAB 11/27/18 19:25 Completed CREATINE KINASE Stat LAB 11/27/18 19:25 Completed PROBNP [NT-PROBNP] Stat LAB 11/27/18 19:25 Completed TROPONIN I Stat LAB 11/27/18 19:25 Completed 0.9 % Sodium Chloride [Saline Flush] MEDS 11/27/18 19:15 Discontinued 1 syr IVF PRN PRN Hydromorphone HCl [Dilaudid 0.5 mg/0.5 ml Syringe] MEDS 11/27/18 19:45 Discontinued 0.5 mg IVP ONCE STA Hydromorphone HCl [Dilaudid 0.5 mg/0.5 ml Syringe] MEDS 11/27/18 20:59 Discontinued 0.5 mg IVP ONCE STA Nitroglycerin [Nitrostat] MEDS 11/27/18 19:15 Discontinued 0.4 mg SL ONCE STA Ondansetron HCl/Pf [Zofran 4 mg/2 ml] MEDS 11/27/18 19:15 Discontinued 4 mg IVP ONCE STA Sodium Chloride 0.9% [Sodium Chloride] 1,000 ml MEDS 11/27/18 19:15 Discontinued IV 100 mls/hr CHEST, 1V AP ONLY Stat RADS 11/27/18 19:[address] ABDOMEN/PELVIS W CONTRAST Stat RADS 11/27/18 19:[address] CHEST W/CONTRAST Stat RADS 11/27/18 19:58 Taken Medications Discontinued Medications Generic Name Dose Route Start Last Admin Trade Name Noah PRN Reason Stop Dose Admin Hydromorphone HCl 0.5 mg 11/27/18 19:45 11/27/18 19:53 Dilaudid 0.5 Mg/0.5 Ml Syringe IVP 11/27/18 19:46 0.5 mg ONCE STA Administration Hydromorphone HCl 0.5 mg 11/27/18 20:59 11/27/18 21:03 Dilaudid 0.5 Mg/0.5 Ml Syringe IVP 11/27/18 21:00 0.5 mg ONCE STA Administration Sodium Chloride 1,000 mls @ 100 mls/hr 11/27/18 19:15 11/27/18 19:27 Sodium Chloride IV 11/28/18 05:14 100 mls/hr .Q10H STA Administration Nitroglycerin 0.4 mg 11/27/18 19:15 11/27/18 19:27 Nitrostat SL 11/27/18 19:16 0.4 mg ONCE STA Administration Ondansetron HCl 4 mg 11/27/18 19:15 11/27/18 19:26 Zofran 4 Mg/2 Ml IVP 11/27/18 19:16 4 mg ONCE STA Administration Sodium Chloride 1 syr 11/27/18 19:15 11/27/18 19:26 Saline Flush IVF 1 syr PRN PRN Administration To flush IV Vital Signs: Temp Pulse Resp BP Pulse Ox 11/27/18 19:13 98 F 80 20 178/92 H 96 XAVIER Risk Score Age >/= 65: Yes >/= 3 CAD Risk Factors: Yes Known CAD (Stenosis >/= 50%): Yes ASA Use in Past 7 Days: Yes Severe Angina (>/= 2 episodes in 24 hours): Yes EKG ST Changes >/= 0.5mm: No Postive Cardiac Marker: No XAVIER Total Score: 5 XAVIER Risk Score: Risk Score Odds of by 30D 0 0.1 (0.1-0.2) 1 0.3 (0.2-0.3) 2 0.4 (0.3-0.5) 3 0.7 (0.6-0.9) 4 1.2 (1.0-1.5) 5 2.2 (1.9-2.6) 6 3.0 (2.5-3.6) 7 4.8 (3.8-6.1) Departure - Departure Time of Disposition: 22:40 Disposition: TSF SHORT-TRM HOSP Discharge Problem: Unstable angina Instructions: Acute Coronary Syndrome (ED) Condition: Stable Pt referred to PMD for follow-up: Yes IPMP verified?: No Allergies/Adverse Reactions: Allergies atropine Adverse Reaction (Verified 11/27/18 19:23) meperidine HCl [From Demerol] Adverse Reaction (Verified 11/27/18 19:23) Home Medications: Ambulatory Orders Alpha Lipoic Acid 200 mg PO BID 10/11/13 Atorvastatin Calcium [Lipitor] 40 mg PO DAILY 10/11/13 Folic Acid 1 mg PO DAILY 10/11/13 Furosemide [Lasix Tab] 40 mg PO QDAC 10/11/13 Lisinopril [Zestril] 40 mg PO BID 10/11/13 Methotrexate Sodium [Methotrexate] 2.5 mg PO WEEKLY 10/11/13 Multivitamin [Multi-Vitamin Daily] 1 tab PO DAILY 10/11/13 Nebivolol HCl [Bystolic] 20 mg PO DAILY 10/11/13 Aspirin 81 mg PO ONCE #1 tab-cap 11/19/16 Amlodipine Besylate [Norvasc] 10 mg PO DAILY 06/23/18 Dulaglutide [Trulicity] 1.5 mg SQ WEEKLY 06/23/18 Pantoprazole Sodium [Protonix] 40 mg PO BID 06/23/18 Garlic 1,000 mg PO BID 11/27/18 Metformin HCl [Metformin ER Gastric] 500 mg PO DAILY 11/27/18 Prednisone 2.5 mg PO DAILY 11/27/18
[2018-11-27] MEDS ORDERED: DILAUDID 0.5 MG/0.5 ML SYRINGE IVP STA ×2 (19:45→20:59)
--- NOTE | 2018-11-27 19:49 | DI ---
Exam: Chest one-view History: Chest pain FINDINGS: Limited study by light portable radiographic technique. Diminished lung volumes also limi ting. Increased density in the left lung base could be atelectasis or scarring. There is prominent epicardial fat which is seen on prior studies. Normal pulmonary vasculature. Remainder the lungs ar e clear. Bilateral shoulder arthroplasty. No acute chest wall abnormality. Impression: Left lung base opacities likely representing combination of epicardial fat and scarring also seen on abdominal CT 04/08/2017. No acute findings otherwise.
--- NOTE | 2018-11-27 20:57 | CT ---
EXAM: CT of the chest, abdomen and pelvis with contrast History: Chest pain, abdominal pain, history of abdominal aortic aneurysm. Comparison: CT abdomen pelvis 04/08/2017 Technique: Multiplanar CT images through the chest, abdomen pelvis were obtained following administr ation of IV contrast Findings: Heart is borderline enlarged. Coronary calcifications. No pericardial effusion. The 4.1 cm ascending aortic aneurysm. No axillary lymphadenopathy. No pathologically enlarged mediastinal or hilar lymph nodes. Peripheral reticular opacities seen within the lungs with honeycombing. No co nsolidation. No pleural fluid and no pneumothorax. No suspicious lung masses or lung nodules. Status post cholecystectomy. No focal liver or splenic lesions. IVC filter. Pancreas is unremarkab le. Adrenal glands are within normal limits. There are multiple bilateral renal lesions, most appea red to represent simple cysts, the largest on the right measures 7.7 cm and the largest on the left m easures 5.4 cm. However, some of these lesions are above fluid fluid density which is most compatibl e with a hemorrhagic or proteinaceous cysts. No bowel obstruction. The appendix is normal. No blad aaron wall thickening. Prostate is not enlarged. No perirectal inflammation. Moderate colonic stool. No free air and no ascites. No p atherosclerotic vascular calcifications. 3.5 cm infrarenal abdom inal aortic aneurysm is unchanged compared to the prior study. There are several new retroperitoneal lymph nodes with the largest measuring 3.3 cm x 1.9 cm. Degenerative changes of the spine. Postsurgical changes of the lumbar spine. Bilateral shoulder art hroplasty hardware Impression: 1. New retroperitoneal lymphadenopathy highly suspicious for malignancy. 2. 4.1 cm ascending aortic aneurysm. 3. Stable 3.5 cm infrarenal abdominal aortic aneurysm. 4. Pulmonary fibrosis. 5. Coronary artery disease. 6. Moderate colonic stool. 7. Bilateral renal cysts, some of which are hemorrhagic or proteinaceous.
== END 2018-11-27 22:44 | disposition short-term general hospital (02) ==
LOC: ED 19:06
DX: I20.0 Unstable angina (principal); I11.9 Hypertensive heart disease without heart failure; R11.2 Nausea with vomiting, unspecified; R06.02 Shortness of breath; Z95.5 Presence of coronary angioplasty implant and graft; Z79.899 Other long term (current) drug therapy
CPT/HCPCS: 36415; 80053; 82550; 83880; 84484; 85025; 93005; 93010; 96361; 96374; 96375; 99285

== ENCOUNTER 2018-11-27 22:42 | Outpatient (CLI) ==
[2018-11-27 19:23] VITALS: BMI 31.6
== END 2018-11-27 23:04 | disposition short-term general hospital (02) ==
LOC: AMBL 22:42
PROVIDERS: ATTEND Internal Medicine Geriatric Medicine
DX: R07.9 Chest pain, unspecified (principal); Z95.5 Presence of coronary angioplasty implant and graft; Z96.612 Presence of left artificial shoulder joint; Z98.890 Other specified postprocedural states